=== PATIENT | female | born 1960 | race Caucasian/White ===

== ENCOUNTER → 2017-07-16 08:19 | Outpatient (CLI) | payer OTHER, MEDICAID, SELFPAY ==
--- NOTE | 2017-07-16 08:21 | DI.US.S_ITS ---
ULTRASOUND OF LEFT BREAST: 07/16/2017 CLINICAL: Patient returns today to evaluate a density in the left breast. Comparison is made to exams dated: 07/16/2017 mammogram, 06/25/2017 mammogram, and 06/02/2016 mammogram - [facility]. Color flow ultrasound of the left breast was performed on the areas of interest. Chavez scale images of the real-time examination were reviewed. There is a benign 0.6 cm x 0.4 cm x 0.5 cm simple cyst in the left breast at 6 o'clock in the retroareolar region. This correlates with mammography findings. IMPRESSION: BENIGN There is no sonographic evidence of malignancy. The 0.6 cm x 0.4 cm x 0.5 cm simple cyst in the left breast is benign. A 1 year screening mammogram is recommended. This exam was interpreted at Station ID: [id number]. Electronically Signed By: Radha schafer/:07/16/2017 09:29:01 letter sent: Normal Exam Ultrasound BI-RADS: 2 Benign
--- NOTE | 2017-07-16 08:21 | DI.MG.S_ITS ---
UNILATERAL LEFT DIGITAL DIAGNOSTIC MAMMOGRAM 3D/2D WITH ADDITIONAL VIEWS: 07/16/2017 CLINICAL: Additional evaluation requested from prior study. Comparison is made to exams dated: 06/25/2017 mammogram, 06/02/2016 mammogram - [facility], and 09/14/2013 mammogram - [facility]. The tissue of the left breast is heterogeneously dense. This may lower the sensitivity of mammography. There is a mass in the left breast at 6 o'clock in the retroareolar region. This is seen in additional views. No other significant masses or calcifications are seen in the breast. IMPRESSION: INCOMPLETE: NEEDS ADDITIONAL IMAGING EVALUATION The mass in the left breast is indeterminate. An ultrasound is recommended. This exam was interpreted at Station ID: [id number]. NOTE: For mammograms, a report in lay terms will be sent to the patient. Approximately 15% of breast malignancies will not be visualized mammographically. In the management of a palpable breast mass, a negative mammogram must not discourage biopsy of a clinically suspicious lesion. Electronically Signed By: Radha schafer/aggie:07/16/2017 08:53:17 letter sent: Additional Imaging Needed ACR BI-RADS Category 0: Incomplete [id number]
== END ==
PROVIDERS: PCP Physician Assistant; Visit Provider Physician Assistant
DX: R92.8 Other abnormal and inconclusive findings on diagnostic imaging of breast (principal)
CPT/HCPCS: 76642; 77065; G0279

== ENCOUNTER → 2017-09-27 08:02 | Outpatient (CLI) | payer OTHER, MEDICAID, SELFPAY ==
[2017-09-27 08:43] LABS: Alanine Aminotransferase 26 IU/L (9-52); Albumin 4.4 g/dL (3.5-5.0); Albumin Globulin Ratio 1.4 (1.0-2.8); Alkaline Phosphatase 67 U/L (38-126); Aspartate Aminotransferase 24 IU/L (14-36); Bilirubin Total 0.7 mg/dL (0.2-1.3); Blood Urea Nitrogen 16 mg/dL (7-17); C-Reactive Protein Quant 0.6 mg/dL (<1.0); Calcium 9.7 mg/dL (8.4-10.2); Carbon Dioxide 31 mmol/L (22-32); Chloride 103 mmol/L (98-107); Cholesterol 161 mg/dL (140-199); Estimated Glomerular Filt Rate > 60.0 mL/min (>60); Globulin 3.1 g/dL (1.7-4.1); Glucose 85 mg/dL (70-100); HDL Cholesterol 37 mg/dL (40-60); HEMOLYSIS < 15 (0-50); LDL Cholesterol Calculated 111 mg/dL (<100); Potassium 4.5 mmol/L (3.4-5.1); Sodium 143 mmol/L (137-145); Total Protein 7.5 g/dL (6.3-8.2); Triglycerides 63 mg/dL (35-150)
[2017-09-27 09:58] LABS: Free T3, Triiodothyronine Free 6.12 pg/mL (2.77-5.27); Free T4, Direct Thyroxine 1.28 ng/dL (0.78-2.19)
[2017-09-27 10:11] LABS: Thyroid Stimulating Hormone 0.67 uIU/mL (0.47-4.68)
== END ==
PROVIDERS: Visit Provider Physician Assistant
DX: I31.9 Disease of pericardium, unspecified (principal); Z01.89 Encounter for other specified special examinations; E03.9 Hypothyroidism, unspecified
CPT/HCPCS: 36415; 80053; 80061; 84439; 84443; 84481; 86140

== ENCOUNTER 2017-12-16 13:21 | Emergency (ER) | payer OTHER, MEDICAID, SELFPAY ==
--- NOTE | 2017-12-16 13:38 | ED.CHESTPAIN ---
HPI - Chest Pain General Chief Complaint: Chest Pain Stated Complaint: pericarditis, congestion, heart pain Time Seen by Provider: 12/16/17 13:38 Source: patient Mode of arrival: ambulatory Limitations: no limitations History of Present Illness HPI narrative: Patient is a 57-year-old female here for evaluation of multiple complaints. She has been seen in the walk-in clinic in the past and is currently on antibiotics and decongestants for an upper respiratory infection. She does also states she has a right sided ear infection. She states that she has been having some shortness of breath and also productive cough. She has been taking her medications. She also describes quite a bit of sinus congestion. She states she is having some chest discomfort. She was diagnosed with pericarditis back in 2016. Related Data Home Medications Medication Instructions Recorded Confirmed cholecalciferol (vitamin D3) 2,000 2,000 unit PO DAILY 11/23/17 12/16/17 unit capsule turmeric 1 cap PO .QDAY 11/23/17 12/16/17 cetirizine [Zyrtec] 1 tab PO DAILY 12/16/17 12/16/17 estradiol [Vivelle-Dot] 1 patch TOPICAL WEEKLY 12/16/17 12/16/17 guaifenesin [Mucinex] 1 tab PO BID 12/16/17 12/16/17 pseudoephedrine HCl [Sudafed] 1 tab PO Q4-6H PRN 12/16/17 12/16/17 Previous Rx's Medication Instructions Recorded alprazolam 0.5 mg tablet 0.5 mg PO BID PRN #30 tab 11/23/[address] See Label Instructions .ROUTE 11/23/17 .COMPLEX #1 levothyroxine 75 mcg tablet 75 mcg PO QAM #30 tab 11/23/17 liothyronine 5 mcg tablet 5 mcg PO QDAY #30 tab 11/23/17 cefdinir 300 mg capsule 300 mg PO BID 10 Days #20 cap 12/13/17 Allergies Allergy/AdvReac Type Severity Reaction Status Date / Time amoxicillin [AMOXICILLIN] Allergy Unknown Verified 12/13/17 15:13 erythromycin base Allergy Unknown GI UPSET Verified 12/13/17 15:13 [ERYTHROMYCIN BASE] SEVERE methocarbamol [METHOCARBAMOL] Allergy Unknown Verified 12/13/17 15:13 oxycodone [From PERCOCET] Allergy Unknown HIVES Verified 12/13/17 15:13 FIORCET Allergy Unknown Uncoded 11/23/17 11:05 Review of Systems Constitutional Reports chills, Reports fever(s) and Denies headache(s) ENT Ears, Nose, Mouth, and Throat: Denies dizziness, Denies headache(s), Denies disequilibrium, Reports sinus pressure and Reports sore throat Cardiovascular Reports chest pain, Denies rapid heart rate, Denies irregular heart rhythm, Denies lightheadedness, Denies palpitations and Reports dyspnea Respiratory Reports cough, Reports pain with cough and Reports dyspnea Gastrointestinal Gastrointestinal: Denies abdominal pain, Denies nausea and Denies vomiting Musculoskeletal Denies myalgias and Denies arthralgias Integumentary/Breasts Denies rash Neurologic Denies dizziness, Denies headache(s) and Denies disequilibrium Endocrine Denies palpitations Hematologic/Lymphatic Denies easy bleeding and Denies easy bruising [facility] Medical History Anxiety (Chronic Unknown) GERD (gastroesophageal reflux disease) (Chronic Unknown) Hemorrhoids (Chronic Unknown) Herpes (Chronic Unknown) Hypothyroidism (Chronic ~2013) Osteopenia (Chronic 10/2015) Osteoporosis (Chronic 10/2015) Recurrent sinusitis (Chronic Unknown) Vertigo (Chronic Unknown) 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) Abnormal Pap smear of cervix (Resolved ~1982) Lymphoma (Resolved 1995) Ovarian cyst (Resolved Unknown) Painful menstrual periods (Resolved Unknown) Skin cancer (Resolved ~1997) Surgical History Status post hysterectomy Social History Smoking Status: Current every day smoker Exam Initial Vital Signs Initial Vital Signs: Vital Signs Temperature 98.2 F 12/16/17 13:44 Pulse Rate 98 H 12/16/17 13:44 Respiratory Rate 18 12/16/17 13:44 Blood Pressure 109/71 12/16/17 13:44 Pulse Oximetry 96 12/16/17 13:44 Const General: cooperative, healthy appearing, comfortable, well developed, well groomed and No acute distress Orientation: alert, awake and oriented x3 HENMT Head: normal to inspection and normocephalic Ears: other ( tympanic membrane on the right is red and bulging. Tympanic membrane on the left is just bulging no red) Eyes Pupils: PERRL Resp Effort & Inspection: normal respiratory effort, no retractions and not tachypneic Auscultation: clear to auscultation bilaterally Cardio Rate: regular rate Rhythm: regular rhythm Heart Sounds: no rubs Pulses: radial pulses present GI Inspection: non-distended Palpation: soft, No firm and No tender Skin Lesions: no lesions Rashes: no rashes Neuro General: alert, awake and oriented x3 Extrem General: normal to inspection and capillary refill normal Psych Appearance: grossly normal and well kempt Course Orders Ordered: ED Orders 12/16/17 13:34 EKG-12 Lead Stat 12/16/17 13:39 XR chest 2V Stat 12/16/17 14:30 B Type Natriuretic Peptide Stat C-Reactive Protein Quant Stat Complete Blood Count AUTO DIFF Stat Comprehensive Metabolic Panel Stat Erythrocyte Sedimentation Rate Stat Lipase Stat Thyroid Stimulating Hormone Stat Troponin I Stat Vital Signs - 8 hr 12/16/17 13:44 12/16/17 14:00 12/16/17 14:40 Temperature 98.2 F Pulse Rate 98 H 91 H 91 H Respiratory Rate 18 16 16 Blood Pressure 109/71 Blood Pressure [Left Arm] 105/73 109/57 L Pulse Oximetry 96 97 96 12/16/17 16:31 Temperature Pulse Rate 88 Respiratory Rate 20 Blood Pressure Blood Pressure [Left Arm] 98/58 L Pulse Oximetry 97 MDM - Chest Pain Lab Data Attestation: I reviewed the patient's lab results. Result diagrams: 12/16/17 14:30 12/16/17 14:30 Lab Results 12/16/17 12/16/17 12/16/17 Range/Units 14:30 14:30 14:30 WBC 7.1 (4.5-11.0) X10^3/uL RBC 4.65 (4.0-5.2) X10^6/uL Hgb 14.3 (12.0-16.0) g/dL Hct 43.6 (36-46) % MCV 93.8 (80-100) fL MCH 30.8 (26-34) PG MCHC 32.8 (30-36) % RDW 13.6 (11.6-14.8) % Plt Count 182 (150-400) X10^3/uL Neut % (Auto) 70.3 (50-75) % Lymph % (Auto) 19.6 L (25-40) % Gilchrist % (Auto) 8.4 (3-14) % Eos % (Auto) 1.1 L (2-4) % Baso % (Auto) 0.6 (0-2) % Neut # (Auto) 5000 (2621-4342) /uL ESR 18 (0-20) MM/HR Sodium 146 H (137-145) mmol/L Potassium 4.3 (3.4-5.1) mmol/L Chloride 105 (98-107) mmol/L Carbon Dioxide 28 (22-32) mmol/L BUN 19 H (7-17) mg/dL Creatinine 0.60 (0.52-1.04) mg/dL Estimated GFR > 60.0 (>60) mL/min BUN/Creatinine Ratio 31.7 H (6-22) Glucose 82 (70-100) mg/dL Calcium 9.2 (8.4-10.2) mg/dL Total Bilirubin 0.4 (0.2-1.3) mg/dL AST 20 (14-36) IU/L ALT 27 (9-52) IU/L Alkaline Phosphatase 77 (38-126) U/L Troponin I < 0.012 (0.01-0.034) ng/mL C-Reactive Protein 5.9 H (<1.0) mg/dL B-Natriuretic Peptide 43.3 (<100) Total Protein 7.2 (6.3-8.2) g/dL Albumin 4.2 (3.5-5.0) g/dL Globulin 3.0 (1.7-4.1) g/dL Albumin/Globulin Ratio 1.4 (1.0-2.8) Lipase 55 (23-300) U/L TSH 0.30 L (0.47-4.68) uIU/mL Imaging Data Chest x-ray: Radiologist's impression: [address] [address] XRay Report Signed Patient: Carrie Lopez MMR#: [id number] : 1960Acct:[id number] Age/Sex: 57 / FDate of Service: 12/16/17 Loc: ED Accession Number: [id number] Procedure: XR chest 2V Ordering Provider: Kaden Nolasco D.O. PROCEDURE: XR CHEST 2V INDICATIONS: chest pain TECHNIQUE: 2 views of the chest were acquired. COMPARISON: [facility], CHEST 1 VIEW, 02/26/2017, 11:26. FINDINGS: Surgical changes and devices: None. Lungs and pleura: No pleural effusions or pneumothorax. Lungs are clear. Mediastinum: Mediastinal contours are normal. Heart size is normal. Bones and chest wall: No suspicious bony abnormalities. Soft tissues appear unremarkable. IMPRESSION: No acute process. Dictated by: Kunal Hua M.D. on 12/16/2017 at 14:31 Approved by: Kunal Hua M.D. on 12/16/2017 at 14:32 ECG Data Attestation: I personally reviewed and interpreted this ECG as follows: Prior ECG tracings: available for review Interpretation: EKG sinus rhythm ventricular rate of 96 normal axis incomplete right bundle branch block normal QTC No ST T wave changes comparison EKG dated 02/26/2017 Today's EKG on change from this previous EKG MDM Narrative Medical decision making narrative: patient with obvious upper respiratory symptoms. Obvious right sided otitis media. She is currently on antibiotics for all of this. No pneumonia on the chest x-ray. I have low concern for pericarditis given her physical exam in her labs. Discussed all this with the patient. We did discuss other treatments for her symptoms. We did discuss the importance of making sure that she is looking at the active ingredients in the [id number] cold preparations that she is taking to make sure that she is not overdosing on any medications. Also informed her that it is a poor that she continues her antibiotics. Will hold on further workup for now. She was given return precautions. She expressed understanding and agreement with plan. Discharge Plan Departure Patient Disposition: Home Clinical Impression: Acute upper respiratory infection Discharge Date/Time: 12/16/17 17:39 Interventions: ED Discharge Assessment Last Done: 12/16/17 17:38 Instructions: Sinusitis Activity Restrictions/Additional Instructions: continue with the antibiotics and other medication that your prescribed at her last medical appointment. Make sure that if your using [id number] cold preparations your looking at the ingredients to make sure you are not doubling up on medications that your taking. Call your primary care doctor for a follow-up. Return to the emergency department for any new or worsening symptoms Prescriptions: No Action cholecalciferol (vitamin D3) 2,000 unit capsule 2,000 unit PO DAILY RF: 0 turmeric 1 cap PO .QDAY RF: 0 alprazolam 0.5 mg tablet 0.5 mg PO BID PRN (Reason: anxiety) Qty: 30 RF: 1 levothyroxine [Synthroid] 75 mcg tablet 75 mcg PO QAM Qty: 30 RF: 5 liothyronine [Cytomel] 5 mcg tablet 5 mcg PO QDAY Qty: 30 RF: [address] See Label Instructions .ROUTE .COMPLEX Qty: 1 RF: 1 cefdinir 300 mg capsule 300 mg PO BID 10 Days Qty: 20 RF: 0 estradiol [Vivelle-Dot] 0.05 mg/24 hr patch semiweekly 1 patch Topical WEEKLY RF: 0 cetirizine [Zyrtec] 10 mg Tablet 1 tab PO DAILY RF: 0 pseudoephedrine HCl [Sudafed] 30 mg Tablet 1 tab PO Q4-6H PRN (Reason: Congestion) RF: 0 guaifenesin [Mucinex] 1,200 mg Tablet Extended Release 12hr 1 tab PO BID RF: 0
[2017-12-16 13:44] VITALS: BP 109/71; PULSE 98; RESP 18; TEMP 36.8; O2SAT 96
[2017-12-16 14:00] VITALS: BP 105/73; PULSE 91; RESP 16; O2SAT 97
--- NOTE | 2017-12-16 14:12 | PC.NURSE ---
reports, right ear pain, upper respiratory congestion, from chest up, has been taking zyrtec,mucinex, sudafed. sxs for 3days, denies fever. nasal drainage clear, yellow thick mucous.
--- NOTE | 2017-12-16 14:35 | PC.NURSE ---
pt states, she has been treating for otitis media, cefdinir 300mg bid , she has been taking them for 3 days.
[2017-12-16 14:40] VITALS: BP 109/57; PULSE 91; RESP 16; O2SAT 96
[2017-12-16 14:58] LABS: Add Manual Diff / Slide Review NO; Basophils Percent Auto 0.6 % (0-2); Eosinophils Percent Auto 1.1 % (2-4); Hematocrit 43.6 % (36-46); Hemoglobin 14.3 g/dL (12.0-16.0); Lymphocytes Percent Auto 19.6 % (25-40); Mean Corpuscular HGB Conc 32.8 % (30-36); Mean Corpuscular Hemoglobin 30.8 PG (26-34); Mean Corpuscular Volume 93.8 fL (80-100); Monocytes Percent Auto 8.4 % (3-14); Neutrophils Absolute Auto 5000 /uL (3000-5900); Neutrophils Percent Auto 70.3 % (50-75); Platelet Count 182 X10^3/uL (150-400); Red Blood Cell Count 4.65 X10^6/uL (4.0-5.2); Red Cell Distribution Width 13.6 % (11.6-14.8); White Blood Cell Count 7.1 X10^3/uL (4.5-11.0)
[2017-12-16 15:16] LABS: Alanine Aminotransferase 27 IU/L (9-52); Albumin 4.2 g/dL (3.5-5.0); Albumin Globulin Ratio 1.4 (1.0-2.8); Alkaline Phosphatase 77 U/L (38-126); Aspartate Aminotransferase 20 IU/L (14-36); BUN Creatinine Ratio 31.7 (6-22); Bilirubin Total 0.4 mg/dL (0.2-1.3); Blood Urea Nitrogen 19 mg/dL (7-17); C-Reactive Protein Quant 5.9 mg/dL (<1.0); Calcium 9.2 mg/dL (8.4-10.2); Carbon Dioxide 28 mmol/L (22-32); Chloride 105 mmol/L (98-107); Estimated Glomerular Filt Rate > 60.0 mL/min (>60); Glucose 82 mg/dL (70-100); HEMOLYSIS < 15 (0-50); Lipase 55 U/L (23-300); Potassium 4.3 mmol/L (3.4-5.1); Sodium 146 mmol/L (137-145); Total Protein 7.2 g/dL (6.3-8.2)
[2017-12-16 15:19] LABS: Erythrocyte Sedimentation Rate 18 MM/HR (0-20)
[2017-12-16 15:20] LABS: B Type Natriuretic Peptide 43.3 (<100)
[2017-12-16 15:26] LABS: Troponin I < 0.012 ng/mL (0.01-0.034)
[2017-12-16 16:31] VITALS: BP 98/58; PULSE 88; RESP 20; O2SAT 97
--- NOTE | 2017-12-16 17:41 | PC.NURSE ---
concern that she did not recieved iv fluids, reassured that her kidney function was normal. pt able to tolerated water po.
== END 2017-12-16 17:39 | disposition home or self-care (01) ==
PROVIDERS: Emergency Provider Emergency Medicine; PCP Student in an Organized Health Care Education/Training Program
DX: J06.9 Acute upper respiratory infection, unspecified (principal); R07.89 Other chest pain
CPT/HCPCS: 36591; 71046; 80053; 83690; 83880; 84443; 84484; 85025; 85651; 86140; 93005; 93010; 99283; 99285

== ENCOUNTER → 2017-12-30 14:32 | Outpatient (CLI) | payer MEDICARE, SELFPAY ==
--- NOTE | 2017-12-30 15:07 | DI.CT.S_ITS ---
PROCEDURE: CT CHEST W CON INDICATIONS: Night sweats, weight loss, Hx of lymphoma, cough TECHNIQUE: After the administration of intravenous contrast, 5 mm thick sections acquired from the pulmonary apices to the posterior costophrenic angles. 7 mm thick coronal and sagittal MIP reformats were acquired. For radiation dose reduction, the following was used: automated exposure control, adjustment of mA and/or kV according to patient size. COMPARISON: [facility], CR, XR CHEST 2V, 12/16/2017, 13:42. [facility], CT, PE STUDY (CTA CHEST), 07/25/2015, 18:27. FINDINGS: Image quality: Excellent. Lungs and pleura: There is a 4 mm nodule in the superior segment of the right lower lobe (series 3 image 39), unchanged foam 07/25/2015. A 2 mm is present in the right middle lobe (series 3 image 29), also unchanged. A couple of small linear subpleural irregular density in the right upper lobe, most likely septal scars. No acute air space opacities. There are a few emphysematous bullae. No pleural effusions or pneumothorax. Central and peripheral airways are patent and normal in caliber. Mediastinum: Heart size is normal. No pericardial effusion. Again noted is aberrant right subclavian artery. No mediastinal or hilar adenopathy by size criteria. Thoracic aorta and central pulmonary arteries are normal in size. Esophagus is normal in caliber. No hiatal hernia. Bones and chest wall: No suspicious bony lesions. No vertebral body compression fractures. No axillary or supraclavicular adenopathy by size criteria. Thyroid gland is normal. Abdomen: Visualized upper abdominal solid organs appear normal. Upper abdominal bowel loops are normal in caliber. IMPRESSION: 1. No lymphadenopathy. 2. A couple of small right lung nodules, unchanged since 07/25/2015, suggesting benign etiology. 3. Small indeterminate low-density nodules in liver are most likely cysts. 4. Mild emphysema. 5. Aberrant right subclavian artery. Dictated by: Asmita Lira M.D. on 12/30/2017 at 16:07 Transcribed by: BUTCH on 12/30/2017 at 16:22 Approved by: Asmita Lira M.D. on 12/30/2017 at 18:56
== END ==
PROVIDERS: PCP Student in an Organized Health Care Education/Training Program; Visit Provider Physician Assistant
DX: J43.9 Emphysema, unspecified (principal); K76.9 Liver disease, unspecified; Q27.8 Other specified congenital malformations of peripheral vascular system; R61 Generalized hyperhidrosis; R63.4 Abnormal weight loss; R05 Cough; R91.8 Other nonspecific abnormal finding of lung field; Z85.72 Personal history of non-Hodgkin lymphomas
CPT/HCPCS: 71260; Q9967

== ENCOUNTER → 2018-06-29 08:51 | Outpatient (CLI) | payer MEDICARE, SELFPAY ==
--- NOTE | 2018-06-29 08:53 | DI.MRI.S_ITS ---
PROCEDURE: MR CERVICAL SPINE WO CON INDICATIONS: Re-assess known radiculopathy and spinal stenosis TECHNIQUE: Noncontrast sagittal T1 spin echo and T2 fast spin echo, sagittal STIR, foraminal oblique sagittal T2 fast spin echo, and axial gradient echo or T2 fast spin echo through the cervical spine. COMPARISON: [facility], , C-SPINE WITHOUT CONTRAST, 11/27/2015, 7:47. FINDINGS: Image quality: Excellent. Alignment and Curvature: Straightening of the normal cervical lordosis Bone Marrow: Multilevel degenerative endplate sclerosis and spurring. Diffuse facet arthropathy. This is most pronounced on the right at C4-C5 (image 2 series 5) No acute fracture seen. Spinal Cord: Visualized spinal cord has normal size and signal. No cerebellar tonsillar herniation. Paraspinous Soft Tissues: No paravertebral masses. Prevertebral soft tissues are normal in thickness. C2-C3: Bilateral facet arthropathy. No central canal narrowing. No foraminal stenosis. C3-C4: Bilateral uncovertebral arthropathy and posterior intervening disc osteophyte complex, and bilateral facet arthropathy. No definite central canal narrowing. Mild right foraminal stenosis which appears unchanged. No left foraminal narrowing C4-C5: Bilateral uncovertebral arthropathy and posterior intervening disc osteophyte complex, and bilateral facet arthropathy. Mild central canal narrowing. This appears minimally progressed since prior study. Moderate to severe right foraminal stenosis with associated nerve root compression, which has developed since the prior study. No definite left-sided foraminal narrowing C5-C6: Bilateral uncovertebral arthropathy and posterior intervening disc osteophyte complex, and bilateral facet arthropathy. Mild central canal narrowing, grossly unchanged moderate left foraminal stenosis which appears unchanged. Mild right foraminal narrowing, unchanged. C6-C7: Bilateral uncovertebral arthropathy and posterior intervening disc osteophyte complex, and bilateral facet arthropathy. Mild central canal narrowing, which is grossly unchanged. Mild right foraminal narrowing which appears unchanged no definite left foraminal stenosis. C7-T1: Bilateral uncovertebral arthropathy and posterior intervening disc osteophyte complex, and bilateral facet disease. No central canal narrowing. No definite foraminal stenosis. IMPRESSION: Interval progression/development of severe right C4-C5 foraminal stenosis with associated nerve root compression. Interval worsening of right C4-C5 facet arthropathy. Remainder of the exam grossly unchanged since 11/27/15. Dictated by: Rasta Wills M.D. on 06/29/2018 at 10:40 Approved by: Rasta Wills M.D. on 06/29/2018 at 10:50
[2018-06-29 10:53] LABS: Vitamin D 25 Hydroxy (D3) 33.8 ng/mL (30.0-100.0)
[2018-06-29 10:54] LABS: Free T3, Triiodothyronine Free 3.61 pg/mL (2.77-5.27); Free T4, Direct Thyroxine 1.49 ng/dL (0.78-2.19)
[2018-06-29 11:07] LABS: Thyroid Stimulating Hormone 2.92 uIU/mL (0.47-4.68)
[2018-07-01 15:51] LABS: Thyroid Stimulating Immunoglob < 89 % baseline (< 140)
== END ==
PROVIDERS: PCP Student in an Organized Health Care Education/Training Program; Visit Provider Student in an Organized Health Care Education/Training Program
DX: M48.02 Spinal stenosis, cervical region (principal); M47.22 Other spondylosis with radiculopathy, cervical region; E03.9 Hypothyroidism, unspecified; E55.9 Vitamin D deficiency, unspecified
CPT/HCPCS: 36415; 72141; 82306; 84439; 84443; 84445; 84481

== ENCOUNTER 2018-07-04 08:53 | Emergency (ER) | payer MEDICARE, SELFPAY ==
[2018-07-04 09:18] VITALS: BP 115/64; PULSE 94; RESP 16; TEMP 35.8; O2SAT 100; BMI 22.4
--- NOTE | 2018-07-04 09:21 | ED.BACK ---
HPI - Back Pain/Injury General Chief Complaint: Back Pain/Injury Stated Complaint: SEVERE BACK PAIN Time Seen by Provider: 07/04/18 09:01 Source: patient Mode of arrival: ambulatory Limitations: no limitations History of Present Illness HPI Narrative: 57-year-old female former smoker with chronic neck and back pain presents with ongoing back pain for the past month or so. She has had significant evaluations of her cervical spine but never really any thorough evaluation of her lumbar spine. She denies any new injury. She denies any fever or chills. She does not use IV drugs. She denies any numbness, tingling or weakness. She denies any saddle anesthesia, difficulty starting urine or bowel streams and denies foot drop. Her pain is worse with motion and improves with rest MD Complaint: back pain Onset (ago): month(s) Duration: intermittent Similar Symptoms Previously: Yes Location: lumbar spine Severity: moderate Quality: aching Relieving factors: immobilization Exacerbating factors: movement Associated symptoms: denies other symptoms Related Data Home Medications Medication Instructions Recorded Confirmed cholecalciferol (vitamin D3) 2,000 2,000 unit PO DAILY 11/23/17 06/16/18 unit capsule Previous Rx's Medication Instructions Recorded disabled parking permit See Rx Instructions .ROUTE 11/23/17 .COMPLEX #1 estradiol 0.05 mg/24 hr semiweekly 1 patch TRANSDERMAL 2XW #1 each 04/21/18 transdermal patch alprazolam 0.5 mg tablet 0.5 mg PO BID PRN #30 tab 06/16/18 levothyroxine 75 mcg tablet 75 mcg PO QAM #30 tab 06/16/18 liothyronine 5 mcg tablet 5 mcg PO QDAY #30 tab 06/16/18 ketorolac 10 mg PO Q6H PRN #14 tab 07/04/18 Allergies Allergy/AdvReac Type Severity Reaction Status Date / Time amoxicillin [AMOXICILLIN] Allergy Unknown Verified 07/04/18 09:22 erythromycin base Allergy Unknown GI UPSET Verified 07/04/18 09:22 [ERYTHROMYCIN BASE] SEVERE methocarbamol [METHOCARBAMOL] Allergy Unknown Verified 07/04/18 09:22 oxycodone [From PERCOCET] Allergy Unknown HIVES Verified 07/04/18 09:22 adhesive tape AdvReac Intermediate Tears skin Verified 07/04/18 09:22 and reactive rashes FIORCET Allergy Unknown Uncoded 07/04/18 09:22 Review of Systems Constitutional Denies chills, Denies fever(s), Denies lethargy and Denies weakness Eyes Denies change in vision, Denies eye discharge, Denies irritation and Denies loss of vision ENT Ears, Nose, Mouth, and Throat: Denies change in voice, Denies neck pain and Denies sore throat Cardiovascular Denies chest pain, Denies irregular heart rhythm, Denies lightheadedness, Denies palpitations, Denies dyspnea, Denies dyspnea on exertion and Denies orthopnea Respiratory Denies cough, Denies dyspnea, Denies dyspnea on exertion and Denies wheezing Gastrointestinal Gastrointestinal: Denies abdominal pain, Denies change in bowel habits, Denies diarrhea, Denies nausea and Denies vomiting Genitourinary Denies hematuria, Denies flank pain, Denies urinary incontinence and Denies urinary urgency Musculoskeletal Reports back pain and Denies neck pain Integumentary/Breasts Denies pruritus, Denies erythema, Denies rash and Denies wounds Neurologic Denies confusion, Denies loss of vision and Denies weakness Psychiatric Denies anxiety, Denies confusion, Denies depression, Denies homicidal ideation and Denies suicidal ideation Endocrine Denies palpitations Hematologic/Lymphatic Denies easy bruising Allergic/Immunologic Denies wheezing [facility] Medical History Anxiety (Chronic Unknown) GERD (gastroesophageal reflux disease) (Chronic Unknown) Hemorrhoids (Chronic Unknown) Herpes (Chronic Unknown) Hypothyroidism (Chronic ~2013) Osteopenia (Chronic 10/2015) Osteoporosis (Chronic 10/2015) Recurrent sinusitis (Chronic Unknown) Vertigo (Chronic Unknown) 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 Extraoccular muscles are intact bilaterally. There is no subconjunctival hemorrhage or exudate. CHEST: Lungs are clear to auscultation bilaterally and free of wheezes, rales, or rhonchi. Heart rate is regular rhythm, there are no murmurs, clicks, rubs, or gallops. There is no chest wall tenderness. ABD: Abdomen is soft and nontender. There is no guarding or rebound. Bowel sounds are normal in all 4 quadrants. There is no mass or organomegaly. EXT: Full painless ROM of all extremities with no loss of sensation or strength. SKIN: Warm, pink, and dry. No erythema or rash BACK: beck tender but free of any obvious external abnormalities. Patient exam notes decreased range of motion and muscle spasm, but no CVA tenderness, or vertebral point tenderness. There are no symptoms of cauda equina such as saddle anesthesia, and decreased reflexes, decreased sensation or strength. Initial Vital Signs Initial Vital Signs: Vital Signs Temperature 96.4 F L 07/04/18 09:18 Pulse Rate 94 H 07/04/18 09:18 Respiratory Rate 16 07/04/18 09:18 Blood Pressure 115/64 07/04/18 09:18 Pulse Oximetry 100 07/04/18 09:18 Course Orders Ordered: ED Orders 07/04/18 09:32 XR lumbar spine 2-3V Stat Vital Signs - 8 hr 07/04/18 10:31 Pulse Rate 70 Respiratory Rate 14 Blood Pressure [Right Arm] 112/69 Pulse Oximetry 100 MDM - Back Pain/Injury Lab Data Urine Dip Bedside Urine Glucose Negative Bedside Urine Bilirubin - Negative Bedside Urine Ketone - Negative Urine Specific [place] 1.030 Bedside Urine Occult Blood - Negative Bedside Urine pH 6.0 Bedside Urine Protein - Negative Bedside Urine Urobilinogen - Negative Bedside Urine Nitrite - Negative Bedside Urine Leukocytes - Negative Esterase Imaging Data Lumbar Pain: Radiologist's impression: JohnCarrie Niko 57 F [address] [address] XRay Report Signed Patient: Carrie Lopez [facility]#: [id number] : 1960Acct:[id number] Age/Sex: 57 / FDate of Service: 07/04/18 Loc: ED Accession Number: [id number] Procedure: XR lumbar spine 2-3V Ordering Provider: Iván Riddle D.O. PROCEDURE: XR LUMBAR SPINE 2-3V INDICATIONS: back pain for 1 week TECHNIQUE: 3 views of the lumbar spine were acquired. COMPARISON: None. FINDINGS: Bones: No fracture or focal osseous destruction. Multilevel degenerative endplate sclerosis and spurring. Diffuse facet arthropathy. Straightening of the normal lordotic curvature. Mild narrowing of the L3-L4 and L4-L5 disc heights. Soft tissues: Overlying bowel gas pattern is normal. No suspicious soft tissue calcifications. IMPRESSION: Spondylosis and facet arthropathy as detailed above. If the patient's pain or other symptoms persist, consider further evaluation with MRI Dictated by: Rasta Wills M.D. on 07/04/2018 at 9:59 Approved by: Rasta Wills M.D. on 07/04/2018 at 10:02 MDM Narrative Medical decision making narrative: Multiple etiologies of back pain considered including; Epidural abscess, cauda equina, mass occupying lesion, and other considered Discharge Plan Departure Patient Disposition: Home Clinical Impression: Back pain Qualifiers: Back pain location: low back pain Chronicity: acute Back pain laterality: bilateral Sciatica presence: without sciatica Qualified Code(s): M54.5 - Low back pain Discharge Date/Time: 07/04/18 10:52 Interventions: ED Discharge Assessment Last Done: 07/04/18 10:52 Instructions: DI for Back Spasm Activity Restrictions/Additional Instructions: *You have been diagnosed with [ chronic back pain ] *What to do: *Take medications as directed *Follow up with your primary care provider in 2-3 days, call for an appointment. Let them know you were seen in the Emergency Department and that we ask that you be seen in follow up *Return to ER if you should have any new, worsening or concerning symptoms Prescriptions: New ketorolac 10 mg tablet 10 mg PO Q6H PRN (Reason: pain) Qty: 14 RF: 0 No Action cholecalciferol (vitamin D3) 2,000 unit capsule 2,000 unit PO DAILY RF: [address] See Rx Instructions .ROUTE .COMPLEX Qty: 1 RF: 1 estradiol [Vivelle-Dot] 0.05 mg/24 hr patch semiweekly 1 patch Transdermal 2XW Qty: 1 RF: 3 levothyroxine [Synthroid] 75 mcg tablet 75 mcg PO QAM Qty: 30 RF: 5 liothyronine [Cytomel] 5 mcg tablet 5 mcg PO QDAY Qty: 30 RF: 5 alprazolam 0.5 mg tablet 0.5 mg PO BID PRN (Reason: anxiety) Qty: 30 RF: 1 Referrals: Ankit Cast MD [Primary Care Provider] -
--- NOTE | 2018-07-04 09:32 | DI.RAD.S_ITS ---
PROCEDURE: XR LUMBAR SPINE 2-3V INDICATIONS: back pain for 1 week TECHNIQUE: 3 views of the lumbar spine were acquired. COMPARISON: None. FINDINGS: Bones: No fracture or focal osseous destruction. Multilevel degenerative endplate sclerosis and spurring. Diffuse facet arthropathy. Straightening of the normal lordotic curvature. Mild narrowing of the L3-L4 and L4-L5 disc heights. Soft tissues: Overlying bowel gas pattern is normal. No suspicious soft tissue calcifications. IMPRESSION: Spondylosis and facet arthropathy as detailed above. If the patient's pain or other symptoms persist, consider further evaluation with MRI Dictated by: Rasta Wills M.D. on 07/04/2018 at 9:59 Approved by: Rasta Wills M.D. on 07/04/2018 at 10:02
[2018-07-04 10:31] VITALS: BP 112/69; PULSE 70; RESP 14; O2SAT 100
--- NOTE | 2018-07-04 17:43 | ED_ITS ---
HPI - Back Pain/Injury General Chief Complaint: Back Pain/Injury Stated Complaint: SEVERE BACK PAIN Time Seen by Provider: 07/04/18 09:01 Source: patient Mode of arrival: ambulatory Limitations: no limitations History of Present Illness HPI Narrative: 57-year-old female former smoker with chronic neck and back pain presents with ongoing back pain for the past month or so. She has had significant evaluations of her cervical spine but never really any thorough evaluation of her lumbar spine. She denies any new injury. She denies any fever or chills. She does not use IV drugs. She denies any numbness, tingling or weakness. She denies any saddle anesthesia, difficulty starting urine or bowel streams and denies foot drop. Her pain is worse with motion and improves with rest MD Complaint: back pain Onset (ago): month(s) Duration: intermittent Similar Symptoms Previously: Yes Location: lumbar spine Severity: moderate Quality: aching Relieving factors: immobilization Exacerbating factors: movement Associated symptoms: denies other symptoms Related Data Home Medications Medication Instructions Recorded Confirmed cholecalciferol (vitamin D3) 2,000 2,000 unit PO DAILY 11/23/17 06/16/18 unit capsule Previous Rx's Medication Instructions Recorded disabled parking permit See Rx Instructions .ROUTE 11/23/17 .COMPLEX #1 estradiol 0.05 mg/24 hr semiweekly 1 patch TRANSDERMAL 2XW #1 each 04/21/18 transdermal patch alprazolam 0.5 mg tablet 0.5 mg PO BID PRN #30 tab 06/16/18 levothyroxine 75 mcg tablet 75 mcg PO QAM #30 tab 06/16/18 liothyronine 5 mcg tablet 5 mcg PO QDAY #30 tab 06/16/18 ketorolac 10 mg PO Q6H PRN #14 tab 07/04/18 Allergies Allergy/AdvReac Type Severity Reaction Status Date / Time amoxicillin [AMOXICILLIN] Allergy Unknown Verified 07/04/18 09:22 erythromycin base Allergy Unknown GI UPSET Verified 07/04/18 09:22 [ERYTHROMYCIN BASE] SEVERE methocarbamol [METHOCARBAMOL] Allergy Unknown Verified 07/04/18 09:22 oxycodone [From PERCOCET] Allergy Unknown HIVES Verified 07/04/18 09:22 adhesive tape AdvReac Intermediate Tears skin Verified 07/04/18 09:22 and reactive rashes FIORCET Allergy Unknown Uncoded 07/04/18 09:22 Review of Systems Constitutional Denies chills, Denies fever(s), Denies lethargy and Denies weakness Eyes Denies change in vision, Denies eye discharge, Denies irritation and Denies loss of vision ENT Ears, Nose, Mouth, and Throat: Denies change in voice, Denies neck pain and Denies sore throat Cardiovascular Denies chest pain, Denies irregular heart rhythm, Denies lightheadedness, Denies palpitations, Denies dyspnea, Denies dyspnea on exertion and Denies orthopnea Respiratory Denies cough, Denies dyspnea, Denies dyspnea on exertion and Denies wheezing Gastrointestinal Gastrointestinal: Denies abdominal pain, Denies change in bowel habits, Denies diarrhea, Denies nausea and Denies vomiting Genitourinary Denies hematuria, Denies flank pain, Denies urinary incontinence and Denies urinary urgency Musculoskeletal Reports back pain and Denies neck pain Integumentary/Breasts Denies pruritus, Denies erythema, Denies rash and Denies wounds Neurologic Denies confusion, Denies loss of vision and Denies weakness Psychiatric Denies anxiety, Denies confusion, Denies depression, Denies homicidal ideation and Denies suicidal ideation Endocrine Denies palpitations Hematologic/Lymphatic Denies easy bruising Allergic/Immunologic Denies wheezing [facility] Medical History Anxiety (Chronic Unknown) GERD (gastroesophageal reflux disease) (Chronic Unknown) Hemorrhoids (Chronic Unknown) Herpes (Chronic Unknown) Hypothyroidism (Chronic ~2013) Osteopenia (Chronic 10/2015) Osteoporosis (Chronic 10/2015) Recurrent sinusitis (Chronic Unknown) Vertigo (Chronic Unknown) 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 Extraoccular muscles are intact bilaterally. There is no subconjunctival hemorrhage or exudate. CHEST: Lungs are clear to auscultation bilaterally and free of wheezes, rales, or rhonchi. Heart rate is regular rhythm, there are no murmurs, clicks, rubs, or gallops. There is no chest wall tenderness. ABD: Abdomen is soft and nontender. There is no guarding or rebound. Bowel sounds are normal in all 4 quadrants. There is no mass or organomegaly. EXT: Full painless ROM of all extremities with no loss of sensation or strength. SKIN: Warm, pink, and dry. No erythema or rash BACK: splitting machine tender but free of any obvious external abnormalities. Patient exam notes decreased range of motion and muscle spasm, but no CVA tenderness, or vertebral point tenderness. There are no symptoms of cauda equina such as sa ddle anesthesia, and decreased reflexes, decreased sensation or strength. Initial Vital Signs Initial Vital Signs: Vital Signs Temperature 96.4 F L 07/04/18 09:18 Pulse Rate 94 H 07/04/18 09:18 Respiratory Rate 16 07/04/18 09:18 Blood Pressure 115/64 07/04/18 09:18 Pulse Oximetry 100 07/04/18 09:18 Course Orders Ordered: ED Orders 07/04/18 09:32 XR lumbar spine 2-3V Stat Vital Signs - 8 hr 07/04/18 10:31 Pulse Rate 70 Respiratory Rate 14 Blood Pressure [Right Arm] 112/69 Pulse Oximetry 100 MDM - Back Pain/Injury Lab Data Urine Dip Bedside Urine Glucose Negative Bedside Urine Bilirubin - Negative Bedside Urine Ketone - Negative Urine Specific [place] 1.030 Bedside Urine Occult Blood - Negative Bedside Urine pH 6.0 Bedside Urine Protein - Negative Bedside Urine Urobilinogen - Negative Bedside Urine Nitrite - Negative Bedside Urine Leukocytes - Negative Esterase Imaging Data Lumbar Pain: Radiologist's impression: JohnCarrie Niko 57 F [address] [address] XRay Report Signed Patient: Carrie Lopez [facility]#: [id number] : 1960Acct:[id number] Age/Sex: 57 / FDate of Service: 07/04/18 Loc: ED Accession Number: [id number] Procedure: XR lumbar spine 2-3V Ordering Provider: Iván Riddle D.O. PROCEDURE: XR LUMBAR SPINE 2-3V INDICATIONS: back pain for 1 week TECHNIQUE: 3 views of the lumbar spine were acquired. COMPARISON: None. FINDINGS: Bones: No fracture or focal osseous destruction. Multilevel degenerative endplate sclerosis and spurring. Diffuse facet arthropathy. Straightening of the normal lordotic curvature. Mild narrowing of the L3-L4 and L4-L5 disc heights. Soft tissues: Overlying bowel gas pattern is normal. No suspicious soft tissue calcifications. IMPRESSION: Spondylosis and facet arthropathy as detailed above. If the patient's pain or other symptoms persist, consider further evaluation with MRI Dictated by: Rasta Wills M.D. on 07/04/2018 at 9:59 Approved by: Rasta Wills M.D. on 07/04/2018 at 10:02 MDM Narrative Medical decision making narrative: Multiple etiologies of back pain considered including; Epidural abscess, cauda equina, mass occupying lesion, and other considered Discharge Plan Departure Patient Disposition: Home Clinical Impression: Back pain Qualifiers: Back pain location: low back pain Chronicity: acute Back pain laterality: bilateral Sciatica presence: without sciatica Qualified Code(s): M54.5 - Low back pain Discharge Date/Time: 07/04/18 10:52 Interventions: ED Discharge Assessment Last Done: 07/04/18 10:52 Instructions: DI for Back Spasm Activity Restrictions/Additional Instructions: *You have been diagnosed with [ chronic back pain ] *What to do: *Take medications as directed *Follow up with your primary care provider in 2-3 days, call for an appointment. Let them know you were seen in the Emergency Department and that we ask that you be seen in follow up *Return to ER if you should have any new, worsening or concerning symptoms Prescriptions: New ketorolac 10 mg tablet 10 mg PO Q6H PRN (Reason: pain) Qty: 14 RF: 0 No Action cholecalciferol (vitamin D3) 2,000 unit capsule 2,000 unit PO DAILY RF: [address] See Rx Instructions .ROUTE .COMPLEX Qty: 1 RF: 1 estradiol [Vivelle-Dot] 0.05 mg/24 hr patch semiweekly 1 patch Transdermal 2XW Qty: 1 RF: 3 levothyroxine [Synthroid] 75 mcg tablet 75 mcg PO QAM Qty: 30 RF: 5 liothyronine [Cytomel] 5 mcg tablet 5 mcg PO QDAY Qty: 30 RF: 5 alprazolam 0.5 mg tablet 0.5 mg PO BID PRN (Reason: anxiety) Qty: 30 RF: 1 Referrals: Ankit Cast MD [Primary Care Provider] -
== END 2018-07-04 10:52 | disposition home or self-care (01) ==
PROVIDERS: Emergency Provider Emergency Medicine; PCP Student in an Organized Health Care Education/Training Program
DX: M54.5 Low back pain (principal)
CPT/HCPCS: 72100; 81003; 99283

== ENCOUNTER → 2018-07-07 08:56 | Outpatient (CLI) | payer MEDICARE, SELFPAY ==
--- NOTE | 2018-07-07 08:58 | DI.MG.S_ITS ---
BILATERAL DIGITAL SCREENING MAMMOGRAM 3D/2D WITH CAD: 07/07/2018 CLINICAL: Routine screening. Family history of breast cancer. Comparison is made to exams dated: 07/16/2017 mammogram, 06/25/2017 mammogram, and 06/02/2016 mammogram - [facility]. The tissue of both breasts is heterogeneously dense. This may lower the sensitivity of mammography. Current study was also evaluated with a Computer Aided Detection (CAD) system. No significant masses, calcifications, or other findings are seen in either breast. There has been no significant interval change. IMPRESSION: NEGATIVE There is no mammographic evidence of malignancy. A 1 year screening mammogram is recommended. This exam was interpreted at Station ID: [id number]. NOTE: For mammograms, a report in lay terms will be sent to the patient. Approximately 15% of breast malignancies will not be visualized mammographically. In the management of a palpable breast mass, a negative mammogram must not discourage biopsy of a clinically suspicious lesion. Electronically Signed By: Catrachito pagan/aggie:07/07/2018 12:15:15 letter sent: Normal Exam ACR BI-RADS Category 1: Negative [id number]
== END ==
PROVIDERS: PCP Student in an Organized Health Care Education/Training Program; Visit Provider Student in an Organized Health Care Education/Training Program
DX: Z12.31 Encounter for screening mammogram for malignant neoplasm of breast (principal); Z80.3 Family history of malignant neoplasm of breast; M81.0 Age-related osteoporosis without current pathological fracture; Z78.0 Asymptomatic menopausal state; C81.90 Hodgkin lymphoma, unspecified, unspecified site; Z90.722 Acquired absence of ovaries, bilateral; Z82.62 Family history of osteoporosis; F17.200 Nicotine dependence, unspecified, uncomplicated
CPT/HCPCS: 77063; 77067; 77080

== ENCOUNTER 2018-09-11 07:18 | Emergency (ER) | payer MEDICARE, SELFPAY ==
[2018-09-11 07:25] VITALS: BP 123/76; PULSE 80; RESP 15; TEMP 36.2; O2SAT 96; BMI 22.4
--- NOTE | 2018-09-11 15:11 | ED_ITS ---
HPI - Allergic Reaction General Chief complaint: Skin/Abscess/Foreign Body Stated complaint: allergic reaction to bug bite on rt hand Time Seen by Provider: 09/11/18 07:23 Source: patient Mode of arrival: ambulatory Limitations: no limitations History of Present Illness HPI narrative: 58-year-old female nonsmoker presents with her therapy dog and a chief complaint of redness and swelling of her right hand after mosquito bite. She states it has been itching and painful, she saw the mosquito bite her. She denies any trouble with breathing nor swelling of tongue, lips or throat. She used some Benadryl lotion without much in the way of relief. She is otherwise well and free of complain MD complaint: allergic reaction Onset (ago): day(s) Exposure: insect bite Symptoms: itching Severity: mild Treatment prior to arrival: topical medicine Previous Allergic Reaction History: none Related Data Home Medications Medication Instructions Recorded Confirmed cholecalciferol (vitamin D3) 2,000 2,000 unit PO DAILY 11/23/17 08/12/18 unit capsule Previous Rx's Medication Instructions Recorded disabled parking permit See Rx Instructions .ROUTE 11/23/17 .COMPLEX #1 levothyroxine 75 mcg tablet 75 mcg PO QAM #30 tab 06/16/18 Vivelle-Dot 0.05 mg/24 hr 1 patch TRANSDERMAL 2XW #8 each NS 07/26/18 transdermal patch zoledronic acid 4 mg/5 mL 4 mg IV ONCE #5 ml 08/12/18 intravenous solution Biest 1.25 mg TOPICAL DAILY #30 mg 08/17/18 alprazolam 0.5 mg tablet 0.5 mg PO BID PRN #30 tab 08/31/18 Allergies Allergy/AdvReac Type Severity Reaction Status Date / Time amoxicillin [AMOXICILLIN] Allergy Unknown Verified 09/11/18 07:25 erythromycin base Allergy Unknown GI UPSET Verified 09/11/18 07:25 [ERYTHROMYCIN BASE] SEVERE methocarbamol [METHOCARBAMOL] Allergy Unknown Verified 09/11/18 07:25 oxycodone [From PERCOCET] Allergy Unknown HIVES Verified 09/11/18 07:25 adhesive tape AdvReac Intermediate Tears skin Verified 09/11/18 07:25 and reactive rashes FIORCET Allergy Unknown Uncoded 09/11/18 07:25 Review of Systems Constitutional Denies chills, Denies fever(s), Denies lethargy and Denies weakness Eyes Denies change in vision, Denies eye discharge, Denies irritation and Denies loss of vision ENT Ears, Nose, Mouth, and Throat: Denies change in voice, Denies neck pain and Denies sore throat Cardiovascular Denies chest pain, Denies irregular heart rhythm, Denies lightheadedness, Denies palpitations, Denies dyspnea, Denies dyspnea on exertion and Denies orthopnea Respiratory Denies cough, Denies dyspnea, Denies dyspnea on exertion and Denies wheezing Gastrointestinal Gastrointestinal: Denies abdominal pain, Denies change in bowel habits, Denies diarrhea, Denies nausea and Denies vomiting Genitourinary Denies hematuria, Denies flank pain, Denies urinary incontinence and Denies urinary urgency Musculoskeletal Denies neck pain Integumentary/Breasts Reports pruritus, Reports erythema, Reports rash, Reports skin swelling and Denies wounds Neurologic Denies confusion, Denies loss of vision and Denies weakness Psychiatric Denies anxiety, Denies confusion, Denies depression, Denies homicidal ideation and Denies suicidal ideation Endocrine Denies palpitations Hematologic/Lymphatic Denies easy bruising Allergic/Immunologic Denies wheezing PFSH Medical History Anxiety (Chronic Unknown) GERD (gastroesophageal reflux disease) (Chronic Unknown) Hemorrhoids (Chronic Unknown) Herpes (Chronic Unknown) Hypothyroidism (Chronic ~2013) Osteopenia (Chronic 10/2015) Osteoporosis (Chronic 10/2015) Recurrent sinusitis (Chronic Unknown) Vertigo (Chronic Unknown) 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 Extrao ccular muscles are intact bilaterally. There is no subconjunctival hemorrhage or exudate. ENT: No tongue, lip, throat swelling. Able to handle secretions without difficulty CHEST: Lungs are clear to auscultation bilaterally and free of wheezes, rales, or rhonchi. Heart rate is regular rhythm, there are no murmurs, clicks, rubs, or gallops. There is no chest wall tenderness. ABD: Abdomen is soft and nontender. There is no guarding or rebound. Bowel sounds are normal in all 4 quadrants. There is no mass or organomegaly. EXT: Full painless ROM of all extremities with no loss of sensation or strength. SKIN: Insect bite noted on dorsum of right hand with minimal surrounding erythema, limited to dorsum of right hand. No pain, induration or fluctuance to suggest cellulitis or abscess Initial Vital Signs Initial Vital Signs: Vital Signs Temperature 97.2 F L 09/11/18 07:25 Pulse Rate 80 09/11/18 07:25 Respiratory Rate 15 09/11/18 07:25 Blood Pressure 123/76 09/11/18 07:25 Pulse Oximetry 96 09/11/18 07:25 Course Vital Signs - 8 hr 09/11/18 07:25 Temperature 97.2 F L Pulse Rate 80 Respiratory Rate 15 Blood Pressure 123/76 Pulse Oximetry 96 Discharge Plan Departure Patient Disposition: Home Clinical Impression: Allergic reaction Qualifiers: Encounter type: initial encounter Qualified Code(s): T78.40XA - Allergy, unspecified, initial encounter Discharge Date/Time: 09/11/18 07:45 Interventions: ED Discharge Assessment Last Done: 09/11/18 07:45 Instructions: DI for General Allergic Reactions Activity Restrictions/Additional Instructions: *You have been diagnosed with [localized allergic reaction to mosquito bite] *What to do: *Take medications as directed: Please increase your Zyrtec to twice daily and use of a hydrocortisone cream as directed on packaging *Follow up with your primary care provider in 2-3 days, call for an appointment. Let them know you were seen in the Emergency Department and that we ask that you be seen in follow up *Return to ER if you should have any new, worsening or concerning symptoms, such as [increasing swelling or more widespread symptoms such as trouble breathing, swallowing or speaking] Prescriptions: No Action cholecalciferol (vitamin D3) 2,000 unit capsule 2,000 unit PO DAILY RF: [address] See Rx Instructions .ROUTE .COMPLEX Qty: 1 RF: 1 estradiol [Vivelle-Dot] 0.05 mg/24 hr patch semiweekly 1 patch Transdermal 2XW Qty: 8 RF: 11 alprazolam 0.5 mg tablet 0.5 mg PO BID PRN (Reason: anxiety) Qty: 30 RF: 2 levothyroxine [Synthroid] 75 mcg tablet 75 mcg PO QAM Qty: 30 RF: 5 zoledronic acid 4 mg/5 mL solution 4 mg IV ONCE Qty: 5 RF: 0 Biest gel 1.25 mg topical DAILY Qty: 30 RF: 5 Referrals: Ankit Cast MD [Primary Care Provider] -
== END 2018-09-11 07:45 | disposition home or self-care (01) ==
PROVIDERS: Emergency Provider Emergency Medicine; PCP Student in an Organized Health Care Education/Training Program
DX: T78.40XA Allergy, unspecified, initial encounter (principal); W57.XXXA Bitten or stung by nonvenomous insect and other nonvenomous arthropods, initial encounter
CPT/HCPCS: 99282

== ENCOUNTER → 2019-02-22 16:12 | Outpatient (CLI) | payer MEDICARE, MEDICAID, SELFPAY ==
[2019-02-22 16:36] LABS: Hematocrit 43.4 % (36-46); Hemoglobin 14.7 g/dL (12.0-16.0); Mean Corpuscular HGB Conc 33.9 % (30-36); Mean Corpuscular Hemoglobin 30.6 PG (26-34); Mean Corpuscular Volume 90.2 fL (80-100); Platelet Count 198 X10^3/uL (150-400); Red Blood Cell Count 4.81 X10^6/uL (4.0-5.2); Red Cell Distribution Width 13.1 % (11.6-14.8); White Blood Cell Count 7.1 X10^3/uL (4.5-11.0)
[2019-02-22 16:55] LABS: Alanine Aminotransferase 25 IU/L (<35); Albumin 4.2 g/dL (3.5-5.0); Albumin Globulin Ratio 1.4 (1.0-2.8); Alkaline Phosphatase 106 U/L (38-126); Aspartate Aminotransferase 32 IU/L (14-36); BUN Creatinine Ratio 21.3 (6-22); Bilirubin Total 0.3 mg/dL (0.2-1.3); Blood Urea Nitrogen 17 mg/dL (7-17); Calcium 9.7 mg/dL (8.4-10.2); Carbon Dioxide 28 mmol/L (22-32); Chloride 104 mmol/L (98-107); Estimated Glomerular Filt Rate > 60.0 mL/min (>60); Glucose 103 mg/dL (70-100); HEMOLYSIS < 15 (0-50); Lipase 104 U/L (23-300); Potassium 3.8 mmol/L (3.4-5.1); Sodium 140 mmol/L (137-145); Total Protein 7.2 g/dL (6.3-8.2)
[2019-02-22 17:42] LABS: Vitamin B12 554 pg/mL (239-931)
[2019-02-22 17:52] LABS: TSH w/ Reflex to FT4 3.98 uIU/mL (0.47-4.68)
== END ==
PROVIDERS: PCP Student in an Organized Health Care Education/Training Program; Visit Provider Student in an Organized Health Care Education/Training Program
DX: R53.83 Other fatigue (principal); I10 Essential (primary) hypertension; E03.9 Hypothyroidism, unspecified; R14.0 Abdominal distension (gaseous)
CPT/HCPCS: 80053; 82607; 83690; 84443; 85027

== ENCOUNTER → 2019-06-29 07:50 | Outpatient (CLI) | payer MEDICARE, MEDICAID, SELFPAY ==
--- NOTE | 2019-06-29 07:52 | DI.ECHO.S_ITS ---
[facility]---------+ [facility] +---------+ : : [address] [place] [place] : : : : [id number] : : : : Phone: [phone] Echocardiogram Report + + :Name: JUICE DAI Study Date: 06/29/2019 Height: 65 in : :[facility] Weight: 165 lb : : Gender: Female BSA: 1.8 m2 : :: 1960 Age: 58 yrs BP: 115/68 mmHg: :Reason For Study: ANGINA, H/O PERICARDITIS : : Performed By: Kimberly King : :Referring: SUMAN ROCHA : + + Interpretation Summary The left ventricle is normal in size. Left ventricular systolic function is normal without focal wall motion abnormalities. The ejection fraction is estimated to be 55-60%. Diastolic parameters suggest a relaxation abnormality of the left ventricle, consistent with probable normal filling pressures. The right ventricle is normal in size and function. The right ventricular systolic pressure is estimated to be at least 20 mmHg based on an estimated right atrial pressure of 3 mm Hg. The left atrial size is normal. Right atrial size is normal. There is no significant valvular heart disease. The aortic root is normal size. There is no pericardial effusion. No significant changes since prior study. Procedure: A two-dimensional transthoracic echocardiogram with color flow and Doppler was performed. There is no prior echocardiogram noted for this patient. The study quality was technically adequate. The patient was in normal sinus rhythm during the exam. The heart rate ranged between 75-85 bpm during the study. Left Ventricle: The left ventricle is normal in size. There is normal left ventricular wall thickness. Left ventricular systolic function is normal without focal wall motion abnormalities. The ejection fraction is estimated to be 55-60%. Diastolic parameters suggest a relaxation abnormality of the left ventricle, consistent with probable normal filling pressures. Right Ventricle: The right ventricle is normal in size and function. Atria: The left atrial size is normal. Right atrial size is normal. The interatrial septum is intact with no evidence for an atrial septal defect. Mitral Valve: The mitral valve is normal in structure and function. Aortic Valve: The aortic valve is normal in structure and function. The aortic valve is trileaflet. The aortic valve opens well. There is no aortic valve stenosis. No aortic regurgitation is present. Tricuspid Valve: The tricuspid valve is normal in structure and function. There is mild tricuspid regurgitation. The right ventricular systolic pressure is estimated to be at least 20 mmHg based on an estimated right atrial pressure of 3 mm Hg. Pulmonic Valve: The pulmonic valve is normal in structure and function. There is trace pulmonic regurgitation. There is no significant valvular heart disease. Great Vessels: The aortic root is normal size. The dimensions of the ascending aorta are normal. The pulmonary artery is normal size. The IVC is of normal diameter and collapses greater than 50% with a sniff. This suggests a low right atrial pressure of 3 mm Hg. Pericardium/ Pleura There is no pericardial effusion. There is no pleural effusion. MMode/2D Measurements & Calculations LVIDd: 3.5 cm LVOT diam: 2.1 cm LVIDs: 2.5 cm Ao root diam: 3.0 cm FS: 27.9 % Ao Arch Diam (Prox Trans): 2.2 cm EPSS: 0.98 cm IVSd: 0.86 cm LVPWd: 0.83 cm LV dempsey. diameter/BSA (cm/m^2): 1.9 LV sys. diameter/BSA (cm/m^2): 1.4 LA A2 area: 13.7 cm2 RA long axis: 4.6 cm LA A4 area: 14.0 cm2 RA area: 14.4 cm2 LA length (vol): 4.9 cm RA vol: 38.7 ml LA vol: 33.4 ml RA : 21.3 ml/m2 LA vol index: 18.3 ml/m2 IVC diam: 1.1 cm RVD1 (basal): 3.0 cm TAPSE: 2.0 cm Doppler Measurements & Calculations Ao V2 max: 111.2 cm/sec LVOT Max Garrison: 81.9 cm/sec Ao V2 mean: 80.1 cm/sec LV V1 max P.7 mmHg Ao max P.9 mmHg LV V1 VTI: 17.5 cm Ao mean P.8 mmHg STEPH(I,D): 2.7 cm2 Ao V2 VTI: 23.5 cm STEPH(V,D): 2.6 cm2 sev ratio: 0.75 STEPH indexed to BSA (cm^2/m^2): 1.5 MV E max garrison: 59.9 cm/sec TR max garrison: 203.9 cm/sec MV A max garrison: 72.2 cm/sec TR max P.7 mmHg MV E/A: 0.83 PA V2 max: 64.1 cm/sec Med Peak E' Garrison: 7.2 cm/sec PA V2 mean: 44.0 cm/sec E/E' med: 8.3 PA mean P.85 mmHg Lat Peak E' Garrison: 9.9 cm/sec E/E' lat: 6.1 E/e' average: 7.2 MV dec time: 0.25 sec SV(LVOT): 62.5 ml Reading Physician:05:26 PM
== END ==
PROVIDERS: PCP Student in an Organized Health Care Education/Training Program; Referring Provider Student in an Organized Health Care Education/Training Program; Visit Provider Student in an Organized Health Care Education/Training Program
DX: I07.1 Rheumatic tricuspid insufficiency (principal); I20.8 Other forms of angina pectoris
CPT/HCPCS: 93306

== ENCOUNTER 2019-07-30 08:34 | Emergency (ER) | payer MEDICARE, MEDICAID, SELFPAY ==
[2019-07-30 08:45] VITALS: BP 118/67; PULSE 85; RESP 16; TEMP 36.7; O2SAT 98; BMI 27.4
--- NOTE | 2019-07-30 10:02 | DI.CT.S_ITS ---
PROCEDURE: CT FACIAL BONES W CON INDICATIONS: Left-sided facial pain and swelling/attention nose/maxilla TECHNIQUE: After the administration of intravenous contrast, 2.5 mm axial sections acquired from the mid-neck to the frontal sinuses, with coronal and sagittal reformats. For radiation dose reduction, the following was used: automated exposure control, adjustment of mA and/or kV according to patient size. COMPARISON: [facility], CT, HEAD WITHOUT CONTRAST, 11/27/2015, 8:07. FINDINGS: Image quality: Diagnostic. Soft tissues: No significant facial edema is present. No loculated fluid collections are identified. No soft tissue masses are identified. No enlarged lymph nodes. Vascular: Visualized vascular structures appear patent throughout. Bony vascular foramina and canals appear normal. No abnormal areas of soft tissue enhancement are evident. Mild atherosclerosis of the left carotid bulb is evident without luminal narrowing appreciated. Bones: Facial bones appear intact, without fractures, erosions, or destruction. Visualized portions of the skull base and auditory canals also appear normal. Sinuses: Paranasal sinuses are aerated without fluid levels, mucosal thickening, or mucoceles. Mastoid air cells are aerated. IMPRESSION: 1. No soft tissue masses, significant soft tissue edema, or fluid collections are identified involving the face. 2. No suspicious soft tissue enhancement phase. 3. No fractures. Dictated by: Jameson Dash M.D. on 07/30/2019 at 11:12 Approved by: Jameson Dash M.D. on 07/30/2019 at 11:15
--- NOTE | 2019-07-30 10:06 | ED.GENADULT ---
HPI - General Adult General Chief complaint: Nasal Problem Stated complaint: lt nasal/eye swelling/pain x10 days Time Seen by Provider: 07/30/19 09:42 Source: patient Mode of arrival: Ambulatory Limitations: no limitations History of Present Illness HPI narrative: Patient complains 10 days of left nose and maxillary sinus pain and pressure radiating up to the left frontal sinus with headache. No fever chills. No cough cold congestion. Patient seen by urgent care as well as her family physician and last [address] Hernandez. Placed on antibiotics for treatment of sinusitis. She does does does have a 1st follow-up with otolaryngology/ENT in 2 days, this Wednesday. Prior history of sinusitis but patient states this feels different. Patient has history of lymphoma treated years ago. Currently in remission. No active chemotherapy or radiation. Related Data Home Medications Medication Instructions Recorded Confirmed cholecalciferol (vitamin D3) 50 2,000 unit PO DAILY 11/23/17 07/30/19 mcg (2,000 unit) capsule Previous Rx's Medication Instructions Recorded Vivelle-Dot 0.05 mg/24 hr 1 patch TRANSDERMAL 2XW #24 each NS 09/14/18 transdermal patch levothyroxine 88 mcg tablet 88 mcg PO QAM #90 tab 02/23/19 BD Pen needle/Anna #100 each 04/10/19 teriparatide 20 mcg/dose (600 20 mcg SUBCUT DAILY #7.2 ml 04/12/19 mcg/2.4 mL) subcutaneous pen injector alprazolam 0.5 mg tablet 0.5 mg PO BID PRN #45 tab 05/10/19 sertraline 100 mg tablet 50 mg PO DAILY #30 tab 07/18/19 sulfamethoxazole 800 1 tab PO BID 5 Days #10 tab 07/27/19 mg-trimethoprim 160 mg tablet Allergies Allergy/AdvReac Type Severity Reaction Status Date / Time acetaminophen [From Fioricet] Allergy Unknown Verified 07/30/19 10:06 butalbital [From Fioricet] Allergy Unknown Verified 07/30/19 10:06 caffeine [From Fioricet] Allergy Unknown Verified 07/30/19 10:06 erythromycin base Allergy Unknown GI UPSET Verified 07/30/19 09:01 [ERYTHROMYCIN BASE] SEVERE methocarbamol [METHOCARBAMOL] Allergy Unknown Verified 07/30/19 09:01 oxycodone [From PERCOCET] Allergy Unknown HIVES Verified 07/30/19 09:01 adhesive tape AdvReac Intermediate Tears skin Verified 07/30/19 09:01 and reactive rashes amoxicillin [AMOXICILLIN] AdvReac Intermediate GI upset Verified 07/30/19 09:01 doxycycline AdvReac Intermediate GI upset Verified 07/30/19 09:01 Review of Systems Review of Systems Narrative: GENERAL: Denies chills, fatigue, malaise, fever, sweats. HEENT: Complains of left nose pain left maxillary sinus and frontal sinus pain. No epistaxis. RESPIRATORY: Denies dyspnea, cough, wheezing, hemoptysis, sputum. CARDIOVASCULAR: Denies chest pain, palpitations, orthopnea, edema, GASTROINTESTINAL: Denies nausea, vomiting, abdominal pain, diarrhea, constipation, melena. : Denies dysuria, frequency, incontinence, hematuria, urinary retention. MUSCULOSKELETAL: denies weakness, joint pain, or bony pain SKIN: Denies rash, skin lesions, or other NEUROLOGIC: Denies weakness, headache, numbness, change in speech, confusion, seizures, incoordination. PSYCHIATRIC: No concerning psychosocial issues. ROS Unobtainable: All systems reviewed & are unremarkable except as noted in HPI and below Patient History Medical History Abnormal Pap smear of cervix (Resolved ~1982) Anxiety (Chronic Unknown) GERD (gastroesophageal reflux disease) (Chronic Unknown) Hemorrhoids (Chronic Unknown) Herpes (Chronic Unknown) Hypothyroidism (Chronic ~2013) Lymphoma (Resolved 1995) Nasal abscess (Acute) Osteopenia (Chronic 10/2015) Osteoporosis (Chronic 10/2015) Ovarian cyst (Resolved Unknown) Painful menstrual periods (Resolved Unknown) Post-nasal drip (Acute) Recurrent sinusitis (Chronic Unknown) Sinus pain (Acute) Skin cancer (Resolved ~1997) Vertigo (Chronic Unknown) 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 Well-nourished, well-developed patient, in no distress, not toxic HEAD: Atraumatic. Normocephalic. EYES: Pupils equal round and reactive. Extraocular motions intact. No scleral icterus. No injection or drainage. ENT: Nose without bleeding, purulent drainage. Throat without erythema, tonsillar hypertrophy or exudate. Airway patent. Examination left nasal passage there is ulceration edema erythema in the medial wall. Possible abscess versus neoplasm. Left naris slightly edematous. Nasal labial fold intact. Tender to touch at the nares as well as the left maxillary sinus and left frontal sinus. NECK: Trachea midline. Non tender NEURO: AOx3. SKIN: No rash or erythema of visible areas Initial Vital Signs Initial Vital Signs: Vital Signs Temperature 98.1 F 07/30/19 08:45 Pulse Rate 85 07/30/19 08:45 Respiratory Rate 16 07/30/19 08:45 Blood Pressure 118/67 07/30/19 08:45 Pulse Oximetry 98 07/30/19 08:45 Course Orders Ordered: ED Orders 07/30/19 10:02 CT facial bones w con Stat 07/30/19 11:12 Complete Blood Count AUTO DIFF Stat Comprehensive Metabolic Panel Stat Discontinued Medications Sodium Chloride (Normal Saline 0.9%) 1,000 mls @ 1,000 mls/hr IV BOLUS ONE Stop: 07/30/19 11:01 Last Infusion: 07/30/19 12:25 Dose: 0 mls/hr Documented by: Admin: 07/30/19 11:23 Dose: 1,000 mls/hr Documented by: ADI Ketorolac Tromethamine (Toradol) 30 mg IV NOW ONE Stop: 07/30/19 12:04 Last Admin: 07/30/19 12:21 Dose: 30 mg Documented by: KEVIN Vital Signs Vital signs: Vital Signs - 8 hr 07/30/19 11:24 07/30/19 13:31 Pulse Rate 84 76 Respiratory Rate 15 14 Blood Pressure 127/65 Blood Pressure [Left Arm] 113/75 Pulse Oximetry 95 99 Medical Decision Making Differential Diagnosis Differential Diagnosis: Neoplastic lesion/abscess Lab Data Result diagrams: 07/30/19 11:12 07/30/19 11:12 Labs: Lab Results 07/30/19 07/30/19 Range/Units 11:12 11:12 WBC 6.0 (4.5-11.0) X10^3/uL RBC 4.79 (4.0-5.2) X10^6/uL Hgb 14.6 (12.0-16.0) g/dL Hct 42.6 (36-46) % MCV 88.8 (80-100) fL MCH 30.5 (26-34) PG MCHC 34.3 (30-36) % RDW 13.8 (11.6-14.8) % Plt Count 248 (150-400) X10^3/uL Neut % (Auto) 68.8 (50-75) % Lymph % (Auto) 21.1 L (25-40) % [place] % (Auto) 6.7 (3-14) % Eos % (Auto) 2.4 (2-4) % Baso % (Auto) 1.0 (0-2) % Neut # (Auto) 4100 (8179-5503) /uL Lymph # (Auto) 1300 (7323-1641) /uL [place] # (Auto) 400 (0-900) /uL Eos # (Auto) 100 (0-450) /uL Baso # (Auto) 100 (0-100) /uL Sodium 140 (137-145) mmol/L Potassium 4.3 (3.4-5.1) mmol/L Chloride 108 H (98-107) mmol/L Carbon Dioxide 24 (22-32) mmol/L BUN 20 H (7-17) mg/dL Creatinine 0.72 (0.52-1.04) mg/dL Estimated GFR > 60.0 (>60) mL/min BUN/Creatinine Ratio 27.8 H (6-22) Glucose 91 (70-100) mg/dL Calcium 9.1 (8.4-10.2) mg/dL Total Bilirubin 0.4 (0.2-1.3) mg/dL AST 27 (14-36) IU/L ALT 23 (<35) IU/L Alkaline Phosphatase 107 (38-126) U/L Total Protein 7.2 (6.3-8.2) g/dL Albumin 4.0 (3.5-5.0) g/dL Globulin 3.2 (1.7-4.1) g/dL Albumin/Globulin Ratio 1.3 (1.0-2.8) Discharge Plan Departure Patient Disposition: Home Clinical Impression: Sinus pain Discharge Date/Time: 07/30/19 13:31 Instructions: DI for Sinusitis Activity Restrictions/Additional Instructions: Return if worse. See your ENT provider on Wednesday as scheduled. Return if worse. Prescriptions: No Action cholecalciferol (vitamin D3) 2,000 unit capsule 2,000 unit PO DAILY RF: 0 sertraline 100 mg tablet 50 mg PO DAILY Qty: 30 RF: 1 levothyroxine 88 mcg tablet 88 mcg PO QAM Qty: 90 RF: 3 (DME) BD Pen needle/Anna 32G X 4mm Qty: 100 RF: 3 Forteo 20 mcg/dose - 600 mcg/2.4 mL pen injector 20 mcg SUBCUT DAILY Qty: 7.2 RF: 5 alprazolam 0.5 mg tablet 0.5 mg PO BID PRN (Reason: anxiety) Qty: 45 RF: 5 sulfamethoxazole-trimethoprim [Bactrim DS] 800-160 mg tablet 1 tab PO BID 5 Days Qty: 10 RF: 0 estradiol [Vivelle-Dot] 0.05 mg/24 hr patch semiweekly 1 patch Transdermal 2XW Qty: 24 RF: 3 Referrals: Ankit Cast MD [Primary Care Provider] -
[2019-07-30] MEDS: SODIUM CHLORIDE 0.9% 1,000 ML 1000 ML IV (11:23)
[2019-07-30 11:24] VITALS: BP 113/75; PULSE 84; RESP 15; O2SAT 95
[2019-07-30 11:24] LABS: Add Manual Diff / Slide Review NO; Basophils Absolute Auto 100 /uL (0-100); Eosinophils Absolute Auto 100 /uL (0-450); Eosinophils Percent Auto 2.4 % (2-4); Hematocrit 42.6 % (36-46); Hemoglobin 14.6 g/dL (12.0-16.0); Lymphocytes Absolute Auto 1300 /uL (1100-4500); Lymphocytes Percent Auto 21.1 % (25-40); Mean Corpuscular HGB Conc 34.3 % (30-36); Mean Corpuscular Hemoglobin 30.5 PG (26-34); Mean Corpuscular Volume 88.8 fL (80-100); Monocytes Absolute Auto 400 /uL (0-900); Monocytes Percent Auto 6.7 % (3-14); Neutrophils Absolute Auto 4100 /uL (1500-7000); Neutrophils Percent Auto 68.8 % (50-75); Platelet Count 248 X10^3/uL (150-400); Red Blood Cell Count 4.79 X10^6/uL (4.0-5.2); Red Cell Distribution Width 13.8 % (11.6-14.8)
[2019-07-30 11:34] LABS: Alanine Aminotransferase 23 IU/L (<35); Albumin Globulin Ratio 1.3 (1.0-2.8); Alkaline Phosphatase 107 U/L (38-126); Aspartate Aminotransferase 27 IU/L (14-36); BUN Creatinine Ratio 27.8 (6-22); Bilirubin Total 0.4 mg/dL (0.2-1.3); Blood Urea Nitrogen 20 mg/dL (7-17); Calcium 9.1 mg/dL (8.4-10.2); Carbon Dioxide 24 mmol/L (22-32); Chloride 108 mmol/L (98-107); Estimated Glomerular Filt Rate > 60.0 mL/min (>60); Globulin 3.2 g/dL (1.7-4.1); Glucose 91 mg/dL (70-100); HEMOLYSIS < 15 (0-50); Potassium 4.3 mmol/L (3.4-5.1); Sodium 140 mmol/L (137-145); Total Protein 7.2 g/dL (6.3-8.2)
--- NOTE | 2019-07-30 12:03 | PC.NURSE ---
patient requested an antinflammatory for pain. Provider notified and gave verbal order for toradol 30mg IV.
[2019-07-30] MEDS: KETOROLAC 60 MG/2 ML VIAL 30 MG IV (12:21)
[2019-07-30 13:31] VITALS: BP 127/65; PULSE 76; RESP 14; O2SAT 99
== END 2019-07-30 13:31 | disposition home or self-care (01) ==
PROVIDERS: Emergency Provider Emergency Medicine; PCP Student in an Organized Health Care Education/Training Program
DX: J34.89 Other specified disorders of nose and nasal sinuses (principal); R51 Headache
CPT/HCPCS: 36415; 70487; 80053; 85025; 96361; 96374; 99284; J1885; Q9967

== ENCOUNTER → 2019-09-18 14:51 | Outpatient (CLI) | payer MEDICARE, MEDICAID, SELFPAY ==
--- NOTE | 2019-09-18 14:53 | DI.MG.S_ITS ---
BILATERAL DIGITAL SCREENING MAMMOGRAM 3D/2D WITH CAD: 09/18/2019 CLINICAL: Routine screening. Comparison is made to exams dated: 07/07/2018 mammogram, 07/16/2017 mammogram, and 06/25/2017 mammogram - [facility]. There are scattered fibroglandular elements in both breasts. Current study was also evaluated with a Computer Aided Detection (CAD) system. No significant masses, calcifications, or other findings are seen in either breast. There has been no significant interval change. IMPRESSION: NEGATIVE There is no mammographic evidence of malignancy. A 1 year screening mammogram is recommended. This exam was interpreted at Station ID: [id number]. NOTE: For mammograms, a report in lay terms will be sent to the patient. Approximately 15% of breast malignancies will not be visualized mammographically. In the management of a palpable breast mass, a negative mammogram must not discourage biopsy of a clinically suspicious lesion. Electronically Signed By: Bridgett bajwa/aggie:09/18/2019 16:28:28 letter sent: Normal Exam ACR BI-RADS Category 1: Negative [id number]
== END ==
PROVIDERS: PCP Student in an Organized Health Care Education/Training Program; Referring Provider Student in an Organized Health Care Education/Training Program; Visit Provider Student in an Organized Health Care Education/Training Program
DX: Z12.31 Encounter for screening mammogram for malignant neoplasm of breast (principal); M85.852 Other specified disorders of bone density and structure, left thigh; Z78.0 Asymptomatic menopausal state; C81.90 Hodgkin lymphoma, unspecified, unspecified site; F17.200 Nicotine dependence, unspecified, uncomplicated; Z90.722 Acquired absence of ovaries, bilateral; Z82.62 Family history of osteoporosis
CPT/HCPCS: 77063; 77067; 77080

== ENCOUNTER → 2019-10-04 08:33 | Outpatient (CLI) | payer MEDICARE, MEDICAID, SELFPAY ==
[2019-10-04 11:29] LABS: TSH w/ Reflex to FT4 1.47 uIU/mL (0.47-4.68)
== END ==
PROVIDERS: PCP Student in an Organized Health Care Education/Training Program; Referring Provider Student in an Organized Health Care Education/Training Program; Visit Provider Student in an Organized Health Care Education/Training Program
DX: R63.5 Abnormal weight gain (principal)
CPT/HCPCS: 36415; 84443

== ENCOUNTER 2019-12-07 20:07 | Emergency (ER) | payer MEDICARE, MEDICAID, SELFPAY ==
[2019-12-07 20:16] VITALS: BP 114/57; PULSE 88; RESP 14; TEMP 36.5; O2SAT 96; BMI 26.6
--- NOTE | 2019-12-07 20:21 | DI.CT.S_ITS ---
PROCEDURE: CT KIDNEY URETER BLADDER (KUB) INDICATIONS: new, acute Right flank pain, ? stone TECHNIQUE: Noncontrast 5 mm thick sections acquired from the diaphragms to the symphysis. 5 mm thick coronal and sagittal reformats were then performed. For radiation dose reduction, the following was used: automated exposure control, adjustment of mA and/or kV according to patient size. COMPARISON: None. FINDINGS: Image quality: Excellent. Lung bases: Lung bases are clear. Heart size is normal. Urinary system: Right kidney is slightly enlarged with moderate right-sided hydronephrosis and hydroureter. There is a 2-3 millimeter stone seen in the region of right UVJ consistent with obstructing right UVJ stone. No left-sided kidney stones. No left-sided hydronephrosis or perinephric fat stranding. Left ureter is within normal limits. Bladder wall thickness is normal; no calcified bladder stones. Other solid organs: Liver is normal in size. Numerous well-circumscribed hypodensities are seen scattered in liver parenchyma and measures up to 1.1 cm in size in right lobe of liver which may represent hepatic cysts. Gallbladder is within normal limits.. Pancreas is normal in contours. Spleen is normal in size. No adrenal nodules. Peritoneum and bowel: Unenhanced bowel loops demonstrate normal wall thickness and caliber. No free fluid or air. Appendix is visualized and is within normal limits. Sigmoid diverticulosis is seen, no CT evidence of acute diverticulitis. Nodes and vessels: No retroperitoneal or mesenteric adenopathy by size criteria. Aorta and inferior vena cava are normal in caliber. Abdominal wall: No ventral hernias. Pelvis: No free pelvic fluid. No inguinal hernias or adenopathy. Bones: No suspicious bony lesions. No vertebral body compression fractures. IMPRESSION: 1. 2-3 millimeter right UVJ stone with moderate left right-sided hydronephrosis and hydroureter. No left-sided renal stone or hydronephrosis. Normal appearing left ureter and urinary bladder. 2. Numerous hypodensities scattered in liver parenchyma likely represent hepatic cysts or small hemangioma. Evaluation is limited due to lack of contrast. Follow-up study with dedicated CT or MRI of abdomen without and with contrast can be done for further evaluation. 3. No bowel obstruction. No abnormal bowel wall thickening. Normal appendix. No free fluid or free air. Dictated by: Martín Dietz M.D. on 12/07/2019 at 20:55 Approved by: Martín Dietz M.D. on 12/07/2019 at 20:58
--- NOTE | 2019-12-07 20:26 | ED.FEMALEGU ---
HPI - Female Genitourinary General Chief complaint: Urogenital-Female Stated complaint: right sided abd pain Time Seen by Provider: 12/07/19 20:14 Source: patient Mode of arrival: Ambulatory Limitations: no limitations History of Present Illness HPI Narrative: 59-year-old woman with a history of hypothyroidism and seasonal allergies presents with acute onset right flank radiating into the right lower quadrant abdominal pain. She describes it as severe, sharp colicky associated with nausea. She does not describe recent fevers, constipation, abdominal pain, chills, cough, vomiting or diarrhea. She has no history of prior kidney stones nor pyelonephritis. Related Data Home Medications Medication Instructions Recorded Confirmed cholecalciferol (vitamin D3) 50 2,000 unit PO DAILY 11/23/17 09/27/19 mcg (2,000 unit) capsule ascorbate calcium (vitamin C) 500 1 gram PO DAILY tab 08/29/19 09/27/19 mg tablet rn-to-PP-[place] 3,6,9 #3 400 mcg mcg PO 08/29/19 09/27/19 capsule Previous Rx's Medication Instructions Recorded Vivelle-Dot 0.05 mg/24 hr 1 patch TRANSDERMAL 2XW #24 each NS 09/14/18 transdermal patch levothyroxine 88 mcg tablet 88 mcg PO QAM #90 tab 02/23/19 BD Pen needle/Anna #100 each 04/10/19 teriparatide 20 mcg/dose (600 20 mcg SUBCUT DAILY #7.2 ml 04/12/19 mcg/2.4 mL) subcutaneous pen injector alprazolam 0.5 mg tablet 0.5 mg PO BID PRN #45 tab 05/10/19 sertraline 100 mg tablet 100 mg PO DAILY #30 tab 10/16/19 montelukast 10 mg tablet 10 mg PO DAILY #90 tab 11/21/19 oxycodone 5 mg PO Q6H PRN #10 tab 12/07/19 Allergies Allergy/AdvReac Type Severity Reaction Status Date / Time acetaminophen [From Fioricet] Allergy Unknown Verified 12/07/19 20:16 butalbital [From Fioricet] Allergy Unknown Verified 12/07/19 20:16 caffeine [From Fioricet] Allergy Unknown Verified 12/07/19 20:16 erythromycin base Allergy Unknown GI UPSET Verified 12/07/19 20:16 [ERYTHROMYCIN BASE] SEVERE methocarbamol [METHOCARBAMOL] Allergy Unknown Verified 12/07/19 20:16 oxycodone [From PERCOCET] Allergy Unknown HIVES Verified 12/07/19 20:16 adhesive tape AdvReac Intermediate Tears skin Verified 12/07/19 20:16 and reactive rashes amoxicillin [AMOXICILLIN] AdvReac Intermediate GI upset Verified 12/07/19 20:16 doxycycline AdvReac Intermediate GI upset Verified 12/07/19 20:16 liquid percocet Allergy Mild Rash Uncoded 12/07/19 20:16 Review of Systems Review of Systems Narrative: Remainder of review of systems including constitutional, ENT, cardiovascular, respiratory, GI, , musculoskeletal, skin, neurologic and psychiatric systems reviewed and are unremarkable except as noted in HPI. 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 Able to give a complete and coherent history. Well-nourished well-developed HEENT: Moist mucous membranes, normal sclera with reactive pupils, Neck: No JVD, supple Respiratory: Lungs are clear to auscultation, no wheezing no rales no rhonchi. Full and symmetrical air movement Cardiac: Regular rate and rhythm no murmurs no bruits Abdomen: Soft,nontender, no rebound no guarding, good bowel tones, right flank pain Skin: Warm and dry, no rashes Neurologic: Grossly neurologically intact with no obvious asymmetries or abnormalities Extremities: No trauma, well perfused Psych: Cooperative, appropriate insight and affect Initial Vital Signs Initial Vital Signs: Vital Signs Temperature 97.7 F 12/07/19 20:16 Pulse Rate 88 12/07/19 20:16 Respiratory Rate 14 12/07/19 20:16 Blood Pressure 114/57 L 12/07/19 20:16 Pulse Oximetry 96 12/07/19 20:16 Course Orders Ordered: ED Orders 12/07/19 20:17 Complete Blood Count AUTO DIFF Stat Comprehensive Metabolic Panel Stat 12/07/19 20:20 Urinalysis and Microscopic Stat 12/07/19 20:21 CT kidney ureter bladder (KUB) Stat Discontinued Medications Lidocaine HCl 5.4 ml/ Sodium (Chloride) 55.4 mls @ 332.4 mls/hr IV NOW ONE Stop: 12/07/19 20:21 Last Infusion: 12/07/19 21:08 Dose: 0 mls/hr Documented by: Admin: 12/07/19 20:34 Dose: 332.4 mls/hr Documented by: ADI Sodium Chloride (Normal Saline 0.9%) 1,000 mls @ 1,000 mls/hr IV BOLUS ONE Stop: 12/07/19 21:19 Last Admin: 12/07/19 20:31 Dose: 1,000 mls/hr Documented by: ADI Ketorolac Tromethamine (Toradol) 15 mg IV NOW ONE Stop: 12/07/19 20:21 Last Admin: 12/07/19 20:31 Dose: 15 mg Documented by: ADI Vital Signs Vital signs: Vital Signs - 8 hr 12/07/19 20:16 Temperature 97.7 F Pulse Rate 88 Respiratory Rate 14 Blood Pressure 114/57 L Pulse Oximetry 96 MDM - Female Genitourinary Medical Records Attestation: I reviewed the patient's medical records. Lab Data Attestation: I reviewed the patient's lab results. Result diagrams: 12/07/19 20:17 12/07/19 20:17 Labs: Lab Results 12/07/19 12/07/19 12/07/19 Range/Units 20:17 20:17 20:20 WBC 7.8 (4.5-11.0) X10^3/uL RBC 4.57 (4.0-5.2) X10^6/uL Hgb 13.8 (12.0-16.0) g/dL Hct 41.6 (36-46) % MCV 91.0 (80-100) fL MCH 30.2 (26-34) PG MCHC 33.2 (30-36) % RDW 13.9 (11.6-14.8) % Plt Count 202 (150-400) X10^3/uL Neut % (Auto) 64.2 (50-75) % Lymph % (Auto) 27.7 (25-40) % Crane % (Auto) 6.2 (3-14) % Eos % (Auto) 1.2 L (2-4) % Baso % (Auto) 0.7 (0-2) % Neut # (Auto) 5000 (0182-5569) /uL Lymph # (Auto) 2200 (9941-1849) /uL Crane # (Auto) 500 (0-900) /uL Eos # (Auto) 100 (0-450) /uL Baso # (Auto) 100 (0-100) /uL Sodium 140 (137-145) mmol/L Potassium 4.1 (3.4-5.1) mmol/L Chloride 105 (98-107) mmol/L Carbon Dioxide 29 (22-32) mmol/L BUN 19 H (7-17) mg/dL Creatinine 0.96 (0.52-1.04) mg/dL Estimated GFR 59.9 L (>60) mL/min BUN/Creatinine Ratio 19.8 (6-22) Glucose 112 H (70-100) mg/dL Calcium 9.6 (8.4-10.2) mg/dL Total Bilirubin 0.3 (0.2-1.3) mg/dL AST 23 (14-36) IU/L ALT 21 (<35) IU/L Alkaline Phosphatase 90 (38-126) U/L Total Protein 7.2 (6.3-8.2) g/dL Albumin 4.0 (3.5-5.0) g/dL Globulin 3.2 (1.7-4.1) g/dL Albumin/Globulin Ratio 1.3 (1.0-2.8) Urine Color Yellow Urine Appearance Cloudy Urine pH 8.0 (4.5-8.0) Ur Specific [place]onson 1.020 (1.000-1.035) Urine Protein Negative (Negative) Urine Glucose (UA) Negative (Negative) g/dL Urine Ketones Negative (NEGATIVE) Urine Occult Blood Negative (Negative) Urine Nitrate Negative (Negative) Urine Bilirubin Negative (NEGATIVE) Urine Urobilinogen 0.2 (0.2) E.U./dL Ur Leukocyte Esterase Negative (NEGATIVE) Urine RBC 0-1/hpf (0-5/HPF) Urine WBC 0-1/hpf (0-5/HPF) Ur Squamous Epith Cells 1-5 /hpf (0-5/HPF) Ur Transition Epith Cell 1-5/hpf (0-5/HPF) Other Crystals 2+ amorphous crystal Urine Bacteria None seen (None) Ur Culture Indicated? Cult not indicated Imaging Data CT scan - abdomen/pelvis: Radiologist's Impression: FINDINGS: Image quality: Excellent. Lung bases: Lung bases are clear. Heart size is normal. Urinary system: Right kidney is slightly enlarged with moderate right-sided hydronephrosis and hydroureter. There is a 2-3 millimeter stone seen in the region of right UVJ consistent with obstructing right UVJ stone. No left-sided kidney stones. No left-sided hydronephrosis or perinephric fat stranding. Left ureter is within normal limits. Bladder wall thickness is normal; no calcified bladder stones. Other solid organs: Liver is normal in size. Numerous well-circumscribed hypodensities are seen scattered in liver parenchyma and measures up to 1.1 cm in size in right lobe of liver which may represent hepatic cysts. Gallbladder is within normal limits.. Pancreas is normal in contours. Spleen is normal in size. No adrenal nodules. Peritoneum and bowel: Unenhanced bowel loops demonstrate normal wall thickness and caliber. No free fluid or air. Appendix is visualized and is within normal limits. Sigmoid diverticulosis is seen, no CT evidence of acute diverticulitis. Nodes and vessels: No retroperitoneal or mesenteric adenopathy by size criteria. Aorta and inferior vena cava are normal in caliber. Abdominal wall: No ventral hernias. Pelvis: No free pelvic fluid. No inguinal hernias or adenopathy. Bones: No suspicious bony lesions. No vertebral body compression fractures. IMPRESSION: 1. 2-3 millimeter right UVJ stone with moderate left right-sided hydronephrosis and hydroureter. No left-sided renal stone or hydronephrosis. Normal appearing left ureter and urinary bladder. 2. Numerous hypodensities scattered in liver parenchyma likely represent hepatic cysts or small hemangioma. Evaluation is limited due to lack of contrast. Follow-up study with dedicated CT or MRI of abdomen without and with contrast can be done for further evaluation. 3. No bowel obstruction. No abnormal bowel wall thickening. Normal appendix. No free fluid or free air. Dictated by: Martín Dietz M.D. on 12/07/2019 at 20:55 MDM Narrative Medical decision making narrative: 59-year-old woman with classic presentation for acute ureterolithiasis. No evidence infection, mass tumor and CT scan does confirm 2-3 mm stone at the right UVJ Pain was initially controlled with Toradol and IV lidocaine. Beginning filled again. Will give her an additional 5 mg of oxycodone and discharge her home with prescription for oxycodone and Flomax as well as a urine strainer. She is safe for home discharge Discharge Plan Departure Patient Disposition: Home Clinical Impression: Ureterolithiasis Instructions: DI for Kidney Stones Activity Restrictions/Additional Instructions: Thank you for coming in today You do have a 2-3 mm kidney stone that is almost ready to drop into your bladder. This is what has been causing your severe pain. There is no sign of bladder or kidney infection. To insure that this stone will pass easily I am going to have to take 0.4 mg of tamsulosin every day. You can stop this once the stone has passed Using 400 mg of ibuprofen (2 hjgj-hzt-mwnojod pills) and 1 Tylenol every 6 hours can be very helpful in controlling pain. For severe pain use 5 mg of oxycodone and ibuprofen together. 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 Delvalle. If you developed fevers, new or worsening symptoms would be very appropriate to return to the emergency department. Prescriptions: New oxycodone 5 mg tablet 5 mg PO Q6H PRN (Reason: pain) Qty: 10 RF: 0 No Action cholecalciferol (vitamin D3) 2,000 unit capsule 2,000 unit PO DAILY RF: 0 wq-vn-WK-[place] 3,6,9 #3 400 mcg capsule PO RF: 0 ascorbate calcium (vitamin C) 500 mg tablet 1 gram PO DAILY RF: 0 levothyroxine 88 mcg tablet 88 mcg PO QAM Qty: 90 RF: 3 (DME) BD Pen needle/Anna 32G X 4mm Qty: 100 RF: 3 Forteo 20 mcg/dose - 600 mcg/2.4 mL pen injector 20 mcg SUBCUT DAILY Qty: 7.2 RF: 5 alprazolam 0.5 mg tablet 0.5 mg PO BID PRN (Reason: anxiety) Qty: 45 RF: 5 sertraline 100 mg tablet 100 mg PO DAILY Qty: 30 RF: 1 montelukast [Singulair] 10 mg tablet 10 mg PO DAILY Qty: 90 RF: 1 estradiol [Vivelle-Dot] 0.05 mg/24 hr patch semiweekly 1 patch Transdermal 2XW Qty: 24 RF: 3 Referrals: Ankit Cast MD [Primary Care Provider] - Verónica Delvalle MD [Physician] -
[2019-12-07 20:27] LABS: Appearance Urine UA CLOUDY; Bilirubin Urine UA NEGATIVE (NEGATIVE); Color Urine UA YELLOW; Glucose Urine UA NEGATIVE (Negative); Ketones Urine UA NEGATIVE (NEGATIVE); Leukocyte Esterase Urine UA NEGATIVE (NEGATIVE); Nitrite Urine UA NEGATIVE (Negative); Occult Blood Urine UA NEGATIVE (Negative); Protein Urine UA NEGATIVE (Negative); Urobilinogen Urine UA 0.2 E.U./dL (0.2)
[2019-12-07 20:29] LABS: Add Manual Diff / Slide Review NO; Basophils Absolute Auto 100 /uL (0-100); Basophils Percent Auto 0.7 % (0-2); Eosinophils Absolute Auto 100 /uL (0-450); Eosinophils Percent Auto 1.2 % (2-4); Hematocrit 41.6 % (36-46); Hemoglobin 13.8 g/dL (12.0-16.0); Lymphocytes Absolute Auto 2200 /uL (1100-4500); Lymphocytes Percent Auto 27.7 % (25-40); Mean Corpuscular HGB Conc 33.2 % (30-36); Mean Corpuscular Hemoglobin 30.2 PG (26-34); Monocytes Absolute Auto 500 /uL (0-900); Monocytes Percent Auto 6.2 % (3-14); Neutrophils Absolute Auto 5000 /uL (1500-7000); Neutrophils Percent Auto 64.2 % (50-75); Platelet Count 202 X10^3/uL (150-400); Red Blood Cell Count 4.57 X10^6/uL (4.0-5.2); Red Cell Distribution Width 13.9 % (11.6-14.8); White Blood Cell Count 7.8 X10^3/uL (4.5-11.0)
[2019-12-07 20:29] LABS: Bacteria Urine None Seen
[2019-12-07] MEDS: SODIUM CHLORIDE 0.9% 1,000 ML 1000 ML IV (20:31)
[2019-12-07] MEDS: KETOROLAC 60 MG/2 ML VIAL 15 MG IV (20:31)
[2019-12-07] MEDS: LIDOCAINE 2% 5.4 ML in SODIUM CHLORIDE 0.9% 50 ML 332.4 ML IV (20:34)
[2019-12-07 20:46] LABS: RBC Urine 0-1/HPF (0-5/HPF); Squamous Epithelial Cell Urine 1-5 /HPF (0-5/HPF); Transitional Epi Cells Urine 1-5/HPF (0-5/HPF); WBC Urine 0-1/HPF (0-5/HPF)
[2019-12-07 20:47] LABS: Culture Indicated Urine Cult Not Indicated; Other Crystals Urine 2+ Amorphous Crystal
[2019-12-07 20:52] LABS: Alanine Aminotransferase 21 IU/L (<35); Albumin Globulin Ratio 1.3 (1.0-2.8); Alkaline Phosphatase 90 U/L (38-126); Aspartate Aminotransferase 23 IU/L (14-36); BUN Creatinine Ratio 19.8 (6-22); Bilirubin Total 0.3 mg/dL (0.2-1.3); Blood Urea Nitrogen 19 mg/dL (7-17); Calcium 9.6 mg/dL (8.4-10.2); Carbon Dioxide 29 mmol/L (22-32); Chloride 105 mmol/L (98-107); Estimated Glomerular Filt Rate 59.9 mL/min (>60); Globulin 3.2 g/dL (1.7-4.1); Glucose 112 mg/dL (70-100); HEMOLYSIS < 15 (0-50); Potassium 4.1 mmol/L (3.4-5.1); Sodium 140 mmol/L (137-145); Total Protein 7.2 g/dL (6.3-8.2)
[2019-12-07] MEDS: OXYCODONE IR 5 MG TABLET 10 MG PO (22:02)
[2019-12-07 22:09] VITALS: BP 139/73; PULSE 89; RESP 16; O2SAT 96
[2019-12-07] MEDS: TAMSULOSIN 0.4 MG CAPSULE PO (22:35)
== END 2019-12-07 22:41 | disposition home or self-care (01) ==
PROVIDERS: Emergency Provider Emergency Medicine; PCP Student in an Organized Health Care Education/Training Program
DX: N20.2 Calculus of kidney with calculus of ureter (principal); R11.0 Nausea
CPT/HCPCS: 36415; 74176; 80053; 81001; 85025; 96361; 96365; 96375; 99284; J1885

== ENCOUNTER → 2019-12-08 15:24 | Outpatient (CLI) | payer MEDICARE, MEDICAID, SELFPAY ==
[2019-12-18 14:27] LABS: Stone Analysis Source URINARY TRACT
[2019-12-18 14:28] LABS: Size 2X2
== END ==
PROVIDERS: PCP Student in an Organized Health Care Education/Training Program; Referring Provider Student in an Organized Health Care Education/Training Program; Visit Provider Student in an Organized Health Care Education/Training Program
DX: Z20.1 Contact with and (suspected) exposure to tuberculosis (principal)
CPT/HCPCS: 82365

== ENCOUNTER → 2020-01-25 15:55 | Outpatient (CLI) | payer MEDICARE, MEDICAID, SELFPAY ==
[2020-01-25 17:18] LABS: Hematocrit 43.5 % (36-46); Hemoglobin 14.2 g/dL (12.0-16.0); Mean Corpuscular HGB Conc 32.7 % (30-36); Mean Corpuscular Hemoglobin 29.9 PG (26-34); Mean Corpuscular Volume 91.4 fL (80-100); Platelet Count 194 X10^3/uL (150-400); Red Blood Cell Count 4.75 X10^6/uL (4.0-5.2); Red Cell Distribution Width 13.2 % (11.6-14.8); White Blood Cell Count 6.9 X10^3/uL (4.5-11.0)
[2020-01-25 19:45] LABS: COVID19 -Nasal RAPID Negative (Negative)
== END ==
PROVIDERS: PCP Student in an Organized Health Care Education/Training Program; Referring Provider Internal Medicine; Visit Provider Internal Medicine
DX: G47.34 Idiopathic sleep related nonobstructive alveolar hypoventilation (principal); Z11.59 Encounter for screening for other viral diseases
CPT/HCPCS: 36415; 85027; 87635; C9803

== ENCOUNTER → 2020-01-26 06:43 | Outpatient (CLI) | payer MEDICARE, MEDICAID, SELFPAY ==
--- NOTE | 2020-02-02 11:13 | PM.PFT.1 ---
Pulmonary Function Test Referral & Results Date Patient Seen: 01/26/20 Requesting provider: Ankit Cast Results: The spirometry demonstrates an FVC of 2.92 L which is 83% of predicted. The FEV1 was measured at 2.28 L which is 83% of predicted. The FEV1/FVC ratio was 78 which is 99% of predicted. Following the administration of bronchodilator there was no appreciable change. Lung volumes show an SVC of 2.52 L which is 78% of predicted. The diffusing capacity was measured at 18.18 which is 71% of predicted. No hemoglobin value was provided, so no correction for potential anemia could be made, if appropriate. The maximum voluntary ventilation was reduced Interpretation: This study demonstrates perhaps very mild obstructive lung disease based on slight reduction FEV1 although FEV1/FVC ratio was balanced and there is no improvement post bronchodilator There is also mild restrictive lung disease present based on reduction SVC Unless patient is anemic, the reduced diffusing capacity also suggest an element of disease at the capillary alveolar level
== END ==
PROVIDERS: PCP Student in an Organized Health Care Education/Training Program; Referring Provider Student in an Organized Health Care Education/Training Program; Visit Provider Student in an Organized Health Care Education/Training Program
DX: J96.21 Acute and chronic respiratory failure with hypoxia (principal); Z87.891 Personal history of nicotine dependence
CPT/HCPCS: 94060; 94726; 94729

== ENCOUNTER → 2020-03-07 09:02 | Outpatient (CLI) | payer MEDICARE, MEDICAID, SELFPAY ==
--- NOTE | 2020-03-07 09:04 | DIET.PN ---
Dietary Progress Note Assessment: 59y F referred to nutrition by PCP for health surveillence related to mineral management for osteoporosis and weight management per reccs from pts sleep study. 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 Pt arms and legs proportional for frame but pt has central adiposity, pt reports feeling bloated and having fat in her middle. Pt taking 750mg calcium, 2,000IU Vit D daily Pt lives c her jemal and reports they sow over snacks and naps. Pt feels her biggest downfall is eating in front of the TV using her lap as a table. Pt has some GERD and cannot take NSAIDs without aggravating it. Pt does take prilosec as needed. HT: 5'6 WT: 165# UBW: 130-35# BMI: 27 (overweight) Labs: BG 112 Usual Day: wakes 4-5am feels rested half the time thyroid meds 1-2 coffee c almond creamer plans for day B(8-10a): chili, eggs c hashbrowns, omelet nap (an hour) ibrahima around house-cleans drawer, organizing sometimes just one big meal at night: little things throughout time rather than a meal, usually in front of a TV: chicken, cream cheese, avocados, big salad c everything in it, loves castro, popcorn has potato chip problem/doritos, cheetoes, pork rinds. Has been told in the past to open a bag of chips or drink salt water if she feels dizzy. Nutrition Diagnosis: 1. overweight r/t undesirable food choices and physical inactivity aeb pt lacks daily structure supporting regular meals and physical activity, pt eats in front of the television, food recall shows reliance on high sodium refined carbohydrate snacks, pt has no current planned physical activity. 2. inadequate mineral intake (calcium) r/t low intake calcium rich foods aeb pt food recall showing low intake calcium rich foods, pt dx c ostoporosis. Interventions: 1. To support habit change, discussed role of habits in eating and physical activity. Pt had large life change 3y ago leading to changes in eating and activity pattern secondary to taste and energy changes. Strongly encouraged pt to break the habit of eating meals and snacks in front of the television to increase mindfulness on hunger and fullness cues. 2. To support weight regulation for cardiovascular and sleep health, educated pt on plate balance using handout and food models. Encouraged pt to create meals and snacks which are 1/4 pro, 1/4 cho, and 1/2 F/nonstarchy veggies to ensure nutritional adequacy and appetite satisfaction. Pt generally eating one food component at a time and goes back to fridge on multiple occasions. 3. To support weight regulation, encouraged pt to be more intentionally active during her day. Pt [place] so encouraged pt to go outside and climb 1-2 flights stairs to tolerance within her day, take dog for short walk, walk with grocery cart all aisles of store when shopping. Encouraged pt to complete physical activity to support her health without endangering herself. 4. To support bone health, encouraged pt to continue current supplementation regimen as she does not eat much calcium rich food. Encouraged pt to limit salty high carb snacks to encourage intake of a variety of nutritive foods rather than crowding them out with processed snacks. 5. To support weight regulation, using handout, introduced pt to hunger scale to start to identify her hunger and fullness cues. Pt will start eating at a 3 and stopping at an 8 to better understand ideal meal timing and portion sizes for her body. Pt will use hunger scale to identify when she is emotional/boredom/mindlessly eating and will discuss this with her therapist as desired to start developing better coping mechanisms that are not food related. Monitoring/Evaluations: Pt will discuss emotional/mindless eating c her therapist as desired
== END ==
PROVIDERS: PCP Student in an Organized Health Care Education/Training Program; Referring Provider Student in an Organized Health Care Education/Training Program; Visit Provider Student in an Organized Health Care Education/Training Program
DX: M81.0 Age-related osteoporosis without current pathological fracture (principal); K21.9 Gastro-esophageal reflux disease without esophagitis; E66.3 Overweight; Z68.27 Body mass index [BMI] 27.0-27.9, adult; Z71.3 Dietary counseling and surveillance
CPT/HCPCS: 97802

== ENCOUNTER → 2020-03-13 07:35 | Outpatient (CLI) | payer MEDICARE, MEDICAID, SELFPAY ==
[2020-03-13 08:42] LABS: Influenza A - CEPHEID Flu A NEGATIVE (NEGATIVE); Influenza B - CEPHEID Flu B NEGATIVE (NEGATIVE)
[2020-03-13 09:01] LABS: COVID19 -Nasal RAPID Negative (Negative)
== END ==
PROVIDERS: PCP Student in an Organized Health Care Education/Training Program; Visit Provider Nurse Practitioner Family
DX: Z20.822 Contact with and (suspected) exposure to COVID-19 (principal); J34.89 Other specified disorders of nose and nasal sinuses
CPT/HCPCS: 87502; 87635

== ENCOUNTER → 2020-03-14 15:25 | Outpatient (CLI) | payer MEDICARE, MEDICAID, SELFPAY ==
--- NOTE | 2020-03-14 15:26 | DI.RAD.S_ITS ---
PROCEDURE: XR SINUS <3V INDICATIONS: Facial swelling TECHNIQUE: 4 views of the sinuses were acquired. COMPARISON: None. FINDINGS: Sinuses: The visualized sinuses demonstrate no air-fluid levels or mucosal thickening. The visualized mastoids also appear clear. Bones: No suspicious bony lesions. Nasal septum is midline. IMPRESSION: Normal sinus series. No nasal bone fracture Dictated by: Ford Wahl M.D. on 03/14/2020 at 17:18 Approved by: Ford Wahl M.D. on 03/14/2020 at 17:18
== END ==
PROVIDERS: PCP Student in an Organized Health Care Education/Training Program; Referring Provider Student in an Organized Health Care Education/Training Program; Visit Provider Student in an Organized Health Care Education/Training Program
DX: J01.90 Acute sinusitis, unspecified (principal)
CPT/HCPCS: 70210

== ENCOUNTER → 2020-06-19 08:55 | Outpatient (CLI) | payer MEDICARE, MEDICAID, SELFPAY ==
[2020-06-19 09:27] LABS: COVID19 -Nasal RAPID Negative (Negative)
== END ==
PROVIDERS: PCP Student in an Organized Health Care Education/Training Program; Visit Provider Registered Nurse Diabetes Educator
DX: Z20.822 Contact with and (suspected) exposure to COVID-19 (principal)
CPT/HCPCS: 87635

== ENCOUNTER → 2020-10-14 09:47 | Outpatient (CLI) | payer MEDICARE, MEDICAID, SELFPAY | PROVIDERS: PCP Student in an Organized Health Care Education/Training Program; Referring Provider Student in an Organized Health Care Education/Training Program; Visit Provider Student in an Organized Health Care Education/Training Program | DX: Z78.0 Asymptomatic menopausal state (principal); M85.851 Other specified disorders of bone density and structure, right thigh; C81.90 Hodgkin lymphoma, unspecified, unspecified site; Z90.722 Acquired absence of ovaries, bilateral; Z82.62 Family history of osteoporosis; Z87.891 Personal history of nicotine dependence | CPT/HCPCS: 77080 ==

== ENCOUNTER → 2020-12-21 12:29 | Outpatient (CLI) | payer MEDICARE, MEDICAID, SELFPAY ==
[2020-12-21 13:02] LABS: COVID19 -Nasal RAPID Negative (Negative)
== END ==
PROVIDERS: PCP Student in an Organized Health Care Education/Training Program; Referring Provider Physician Assistant; Visit Provider Physician Assistant
DX: R59.9 Enlarged lymph nodes, unspecified (principal); Z20.822 Contact with and (suspected) exposure to COVID-19
CPT/HCPCS: 87070; 87635

== ENCOUNTER → 2020-12-23 14:52 | Outpatient (CLI) | payer MEDICARE, MEDICAID, SELFPAY ==
[2020-12-23 15:29] LABS: Hematocrit 43.9 % (36-46); Hemoglobin 14.9 g/dL (12.0-16.0); Mean Corpuscular HGB Conc 33.9 % (30-36); Mean Corpuscular Volume 91.4 fL (80-100); Platelet Count 169 X10^3/uL (150-400); Red Cell Distribution Width 13.8 % (11.6-14.8); White Blood Cell Count 5.4 X10^3/uL (4.5-11.0)
[2020-12-23 15:34] LABS: Add Manual Diff / Slide Review YES
[2020-12-23 15:41] LABS: Alanine Aminotransferase 22 IU/L (<35); Albumin Globulin Ratio 1.4 (1.0-2.8); Alkaline Phosphatase 68 U/L (38-126); Aspartate Aminotransferase 23 IU/L (14-36); Bilirubin Total 0.3 mg/dL (0.2-1.3); Blood Urea Nitrogen 14 mg/dL (7-17); Calcium 9.2 mg/dL (8.4-10.2); Carbon Dioxide 27 mmol/L (22-32); Chloride 108 mmol/L (98-107); Estimated Glomerular Filt Rate > 60.0 mL/min (>60); Globulin 2.9 g/dL (1.7-4.1); Glucose 104 mg/dL (70-100); HEMOLYSIS < 15 (0-50); Potassium 3.7 mmol/L (3.4-5.1); Sodium 143 mmol/L (137-145); Total Protein 6.9 g/dL (6.3-8.2)
[2020-12-23 15:51] LABS: Neutrophils Absolute Manual 3402 /uL (3000-5900); RBC Morphology Normal Morphology; Total Cells Counted 100
== END ==
PROVIDERS: PCP Student in an Organized Health Care Education/Training Program; Referring Provider Physician Assistant; Visit Provider Physician Assistant
DX: R59.0 Localized enlarged lymph nodes (principal)
CPT/HCPCS: 36415; 80053; 85007; 85025

== ENCOUNTER → 2021-05-13 09:32 | Outpatient (CLI) | payer MEDICARE, MEDICAID, SELFPAY ==
--- NOTE | 2021-05-13 09:32 | DI.MG.S_ITS ---
BILATERAL DIGITAL SCREENING MAMMOGRAM 3D/2D WITH CAD: 05/13/2021 CLINICAL: Routine screening. Comparison is made to exams dated: 09/18/2019 mammogram, 07/07/2018 mammogram, 07/16/2017 mammogram, and 06/25/2017 mammogram - [facility]. There are scattered fibroglandular elements in both breasts. Current study was also evaluated with a Computer Aided Detection (CAD) system. No significant masses, calcifications, or other findings are seen in either breast. There has been no significant interval change. IMPRESSION: NEGATIVE There is no mammographic evidence of malignancy. A 1 year screening mammogram is recommended. This exam was interpreted at Station ID: [id number]. NOTE: For mammograms, a report in lay terms will be sent to the patient. Approximately 15% of breast malignancies will not be visualized mammographically. In the management of a palpable breast mass, a negative mammogram must not discourage biopsy of a clinically suspicious lesion. Electronically Signed By: Bridgett bajwa/aggie:05/13/2021 11:58:12 letter sent: Normal Exam ACR BI-RADS Category 1: Negative [id number]
== END ==
PROVIDERS: PCP Student in an Organized Health Care Education/Training Program; Referring Provider Student in an Organized Health Care Education/Training Program; Visit Provider Student in an Organized Health Care Education/Training Program
DX: Z12.31 Encounter for screening mammogram for malignant neoplasm of breast (principal)
CPT/HCPCS: 77063; 77067

== ENCOUNTER → 2021-09-24 16:32 | Outpatient (CLI) | payer MEDICARE, MEDICAID, SELFPAY ==
--- NOTE | 2021-09-24 16:35 | DI.RAD.S_ITS ---
PROCEDURE: XR CHEST 2V INDICATIONS: cough TECHNIQUE: 2 views of the chest were acquired. COMPARISON: [facility], CR, XR CHEST 2V, 12/16/2017, 13:42. FINDINGS: Surgical changes and devices: None. Lungs and pleura: Minimal interstitial infiltrates can be seen involving the lower lungs. No pleural effusions or pneumothorax. Mediastinum: Mediastinal contours are normal. Heart size is normal. Bones and chest wall: No suspicious bony abnormalities. At least 1 remote left posterior rib fracture can be seen. Age-appropriate bony degenerative changes are seen. Soft tissues appear unremarkable. IMPRESSION: Minimal interstitial type infiltrates are seen involving the lower lungs. Please consider COVID pneumonia versus pulmonary edema. The heart size is normal. Dictated by: Jayro Grijalva M.D. on 09/24/2021 at 17:10 Approved by: Jayro Grijalva M.D. on 09/24/2021 at 17:11
== END ==
PROVIDERS: PCP Student in an Organized Health Care Education/Training Program; Referring Provider Nurse Practitioner Family; Visit Provider Nurse Practitioner Family
DX: R05.9 Cough, unspecified (principal)
CPT/HCPCS: 71046

== ENCOUNTER → 2021-12-10 14:40 | Outpatient (CLI) | payer MEDICARE, MEDICAID, SELFPAY ==
--- NOTE | 2021-12-10 14:41 | DI.CT.S_ITS ---
PROCEDURE: CT SOFT TISSUE NECK WO CON INDICATIONS: persistent cough for three months TECHNIQUE: Non-contrast 3.0 mm axial sections acquired from the sella to the aortic arch. Additional oblique axial 3.0 mm sections acquired through the pharynx. 3 mm thick coronal and sagittal reformats were generated. For radiation dose reduction, the following was used: automated exposure control. COMPARISON: None. FINDINGS: Image quality: Excellent. Lymph nodes: No enlarged lymph nodes seen throughout the neck. Vessels: Non-opacified vessels appear normal in caliber. Neck spaces: The oropharynx, nasopharynx, and pharynx demonstrate no mucosal lesions. The vocal cords, false vocal cords, pyriform sinuses, epiglottis, vallecula, and tongue base all appear normal. Extramucosal spaces appear unremarkable. Glands: The parotid and submandibular glands appear normal, without stones. Thyroid gland grossly normal. IMPRESSION: No significant abnormality in the next to explain chronic cough. Lung findings which are likely clinically significant are noted; please see separately dictated CT chest report for comprehensive description. Dictated by: Jared Millard M.D. on 12/10/2021 at 20:15 Approved by: Jared Millard M.D. on 12/16/2021 at 16:14
--- NOTE | 2021-12-10 14:41 | DI.CT.S_ITS ---
PROCEDURE: CT CHEST WO CON INDICATIONS: Persistent cough for 3 months TECHNIQUE: Noncontrast 5 mm thick sections acquired from the pulmonary apices to the posterior costophrenic angles. 1 mm lung window, 5 mm thick coronal and sagittal and 7 mm axial MIP reformats were then acquired. For radiation dose reduction, the following was used: automated exposure control, adjustment of mA and/or kV according to patient size. COMPARISON: [facility], CT, PE STUDY (CTA CHEST), 07/25/2015, 18:27. [facility], CR, XR CHEST 2V, 09/24/2021, 16:47. [facility], CT, CT SOFT TISSUE NECK WO CON, 12/10/2021, 14:45. FINDINGS: Image quality: Excellent. Lungs and pleura: Mild areas of patchy poorly defined opacity can be seen involving both lower lungs. No acute air space opacities. No suspicious pulmonary nodules are seen. Several calcified granulomas are seen. No pleural effusions or pneumothorax. Central and peripheral airways are patent and normal in caliber. Mild emphysematous changes are seen, with pulmonary cyst formation. Mediastinum: Heart size is normal. No pericardial effusion. No mediastinal adenopathy by size criteria. Calcified mediastinal lymph nodes are seen. Thoracic aorta and central pulmonary arteries are normal in size. An aberrant simply in artery is again seen. Esophagus is normal in caliber. No hiatal hernia. Bones and chest wall: No suspicious bony lesions. No vertebral body compression fractures. No axillary or supraclavicular adenopathy by size criteria. Thyroid gland demonstrates no significant noncontrast abnormality. Abdomen: Simple appearing liver cysts are seen. IMPRESSION: Mild areas of patchy poorly defined opacity can be seen involving both lower lungs. These are nonspecific, although chronic infection is suspected. Mild emphysematous changes are seen, with pulmonary cyst formation. 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 Dictated by: Jayro Grijalva M.D. on 12/10/2021 at 16:46 Approved by: Jayro Grijalva M.D. on 12/10/2021 at 16:49
== END ==
PROVIDERS: PCP Student in an Organized Health Care Education/Training Program; Referring Provider Student in an Organized Health Care Education/Training Program; Visit Provider Student in an Organized Health Care Education/Training Program
DX: R05.8 Other specified cough; K76.89 Other specified diseases of liver; J98.4 Other disorders of lung
CPT/HCPCS: 70490; 71250

== ENCOUNTER → 2022-02-18 07:50 | Outpatient (CLI) | payer MEDICARE, MEDICAID, SELFPAY ==
--- NOTE | 2022-02-18 | DI.ECHO.S_ITS ---
[facility] +---------+ : : [address] : : : : [id number] : : : : Phone: [phone]+ Echocardiogram Report + + :Name: JUICE DAI Study Date: 02/18/2022 Height: 65 in : :[facility] ReadingLocation: Weight: 155 lb : : Gender: Female BSA: 1.8 m2 : :: 1960 Age: 61 yrs BP: 119/86 mmHg: :Reason For Study: PERICARDITIS : :Ordering Physician: YANDY AVITIA Performed By: Kimberly King : :Referring: YANDY AVITIA : + + Interpretation Summary There is normal left ventricular wall thickness. The ejection fraction is estimated to be 50-55%. Previous LVEF 55 to 60%. There are no focal wall motion abnormalities. The right ventricle is normal in size and function. There is mild to moderate tricuspid regurgitation. Compared to the prior echo exam, there has been an increase in TR severity. The right ventricular systolic pressure is estimated to be at least 23 mmHg based on an estimated right atrial pressure of 3 mm Hg. There is no pericardial effusion. There is an anterior echo-free space consistent with a fat pad. Procedure: A two-dimensional transthoracic echocardiogram with color flow and Doppler was performed. The study quality was technically adequate. Comparison is made with the echocardiogram of 06/29/2019. The patient was in sinus rhythm with heart rates between 67-78 bpm during the exam. Left Ventricle: There is normal left ventricular wall thickness. There is no thrombus. The ejection fraction is estimated to be 50-55%. There are no focal wall motion abnormalities. Diastolic parameters suggest a relaxation abnormality of the left ventricle, consistent with probable normal filling pressures. Right Ventricle: The right ventricle is normal in size and function. Atria: The left atrial size is normal. There has been no significant change since the previous study. Right atrial size is normal. There is no Doppler evidence for an interatrial shunt. Mitral Valve: The mitral valve leaflets are mildly calcified. There is mild to moderate mitral annular calcification. No significant mitral valve stenosis. There is trace mitral regurgitation. Aortic Valve: The aortic valve is trileaflet. The aortic valve opens well. There is no aortic valve stenosis. There is trace aortic regurgitation. Tricuspid Valve: The tricuspid valve is normal. There is mild to moderate tricuspid regurgitation. The right ventricular systolic pressure is estimated to be at least 23 mmHg based on an estimated right atrial pressure of 3 mm Hg. Compared to the prior echo exam, there has been an increase in TR severity. Pulmonic Valve: The pulmonic valve is not well seen, but is grossly normal. There is mild pulmonic regurgitation. Great Vessels: The aortic root is normal size. The dimensions of the ascending aorta are normal. The IVC is of normal diameter and collapses greater than 50% with a sniff. This suggests a low right atrial pressure of 3 mm Hg. Pericardium/ Pleura There is no pericardial effusion. There is an anterior echo-free space consistent with a fat pad. There is no pleural effusion. MMode/2D Measurements & Calculations LVIDd: 4.3 cm LVOT diam: 2.0 cm LVIDs: 3.1 cm Ao root diam: 3.4 cm FS: 28.1 % asc Aorta Diam: 2.6 cm EPSS: 1.2 cm Ao Arch Diam (Prox Trans): 2.3 cm IVSd: 0.77 cm LVPWd: 0.67 cm LV dempsey. diameter/BSA (cm/m^2): 2.4 LV sys. diameter/BSA (cm/m^2): 1.8 LA A2 area: 14.4 cm2 RA long axis: 4.4 cm LA A4 area: 14.7 cm2 RA area: 13.2 cm2 LA length (vol): 4.9 cm RA vol: 33.4 ml LA vol: 36.7 ml RA : 18.8 ml/m2 LA vol index: 20.7 ml/m2 IVC diam: 1.4 cm RVD1 (basal): 3.0 cm RVD2 (mid): 2.4 cm TAPSE: 2.3 cm Doppler Measurements & Calculations Ao V2 max: 105.8 cm/sec LVOT Max Garrison: 66.4 cm/sec Ao V2 mean: 74.3 cm/sec LV V1 max P.8 mmHg Ao max P.5 mmHg LV V1 VTI: 14.0 cm Ao mean P.5 mmHg STEPH(I,D): 2.0 cm2 Ao V2 VTI: 22.1 cm STEPH(V,D): 2.0 cm2 sev ratio: 0.64 STEPH indexed to BSA (cm^2/m^2): 1.1 MV E max garrison: 62.1 cm/sec TR max garrison: 202.6 cm/sec MV A max garrison: 75.1 cm/sec TR max P.6 mmHg MV E/A: 0.83 PA V2 max: 70.8 cm/sec Med Peak E' Garrison: 5.8 cm/sec PA V2 mean: 51.6 cm/sec E/E' med: 10.6 PA mean P.2 mmHg Lat Peak E' Garrison: 8.5 cm/sec PA pr(Accel): 31.0 mmHg E/E' lat: 7.3 E/e' average: 9.0 MV dec time: 0.22 sec SV(LVOT): 43.8 ml Reading Physician:02:53 PM
--- NOTE | 2022-02-18 | DI.CT.S_ITS ---
PROCEDURE: CT CHEST ABD PEL W CON INDICATIONS: Acute nonspecific idiopathic pericarditis TECHNIQUE: After the administration of oral and intravenous contrast, axial sections acquired from the supraclavicular neck to the pubic symphysis. Coronal and sagittal reformats were performed. For radiation dose reduction, the following was used: automated exposure control, adjustment of mA and/or kV according to patient size. COMPARISON: [facility], CT, CT CHEST WO CON, 12/10/2021, 14:45. [facility], CT, CT KIDNEY URETER BLADDER (KUB), 12/07/2019, 20:22. FINDINGS: Image quality: Excellent. CHEST: Lower Neck: No enlarged lymph nodes. Thyroid: Unremarkable Axillae: No enlarged lymph nodes. Chest Wall: Unremarkable. Lungs and Airways: Apical scarring is redemonstrated. There is mild centrilobular emphysema with an apical predominance. There is mild peripheral interlobular septal thickening suggesting early fibrotic change. Scattered pneumatoceles are noted. 2 and 3 cm nodular radiopacities are redemonstrated at the lung bases. No focal airspace opacities. Pleura: No pneumothorax or pleural effusions. Heart: Heart size is normal. No pericardial effusion. Thoracic Vessels: The aorta and pulmonary arteries demonstrate normal size. There is an incidentally noted aberrant right subclavian artery. Scattered atheromatous calcifications are present at the thoracic aortic arch. Mediastinum and Renea: No enlarged lymph nodes. Esophagus: No wall thickening. No hiatal hernia. ABDOMEN: Liver: Unremarkable. Gallbladder: Unremarkable. Biliary ducts: Unremarkable. Pancreas: Unremarkable. Spleen: Unremarkable. Adrenal Glands: Unremarkable. Kidneys and Ureters: Unremarkable. Stomach and Bowel: Stomach, small bowel loops, and colon are unremarkable. The appendix is thin walled and gas filled. There are scattered sigmoid diverticula. No evidence for diverticulitis. Peritoneum: No abnormal intraperitoneal fluid. No free air. Ventral Wall: No hernia. Abdominal Nodes: No retroperitoneal or mesenteric adenopathy by size criteria. Vessels: Aorta and inferior vena cava are normal in size. PELVIS: Pelvic Organs: Unremarkable. Bladder: Unremarkable. Pelvic Nodes: No enlarged lymph nodes. Miscellaneous: No inguinal hernias are seen. Bones: Unremarkable. IMPRESSION: 1. Peripheral interlobular septal thickening and nodular radiopacities suggesting early pulmonary fibrosis. 2. No cardiomegaly or pericardial effusion. 3. No acute intra-abdominal findings. Normal appendix. Diverticulosis. No acute diverticulitis. Dictated by: Radha Olson M.D. on 02/18/2022 at 10:30 Approved by: Radha Olson M.D. on 02/18/2022 at 10:35
== END ==
PROVIDERS: PCP Student in an Organized Health Care Education/Training Program; Referring Provider Internal Medicine Pulmonary Disease; Visit Provider Internal Medicine Pulmonary Disease
DX: I30.0 Acute nonspecific idiopathic pericarditis (principal); I08.1 Rheumatic disorders of both mitral and tricuspid valves; J43.2 Centrilobular emphysema; R05.3 Chronic cough; K57.30 Diverticulosis of large intestine without perforation or abscess without bleeding; Z85.72 Personal history of non-Hodgkin lymphomas; Z85.71 Personal history of Hodgkin lymphoma
CPT/HCPCS: 71260; 74177; 93306; Q9967

== ENCOUNTER → 2022-02-26 08:53 | Outpatient (CLI) | payer MEDICARE, MEDICAID, SELFPAY ==
[2022-02-26 10:07] LABS: COVID19 -Nasal RAPID Negative (Negative)
== END ==
PROVIDERS: PCP Student in an Organized Health Care Education/Training Program; Referring Provider Internal Medicine; Visit Provider Internal Medicine
DX: Z20.822 Contact with and (suspected) exposure to COVID-19 (principal)
CPT/HCPCS: 87635; C9803

== ENCOUNTER → 2022-02-27 10:02 | Outpatient (CLI) | payer MEDICARE, MEDICAID, SELFPAY ==
--- NOTE | 2022-03-04 08:10 | PM.PFT.1 ---
Pulmonary Function Test Referral & Results Date Patient Seen: 02/27/22 Requesting provider: Dianne Maldonado Results: The spirometry demonstrates an FVC of 2.66 L which is 77% of predicted. The FEV1 was measured at 2.04 L which is 76% of predicted. The FEV1/FVC ratio was 77 which is 98% of predicted. Following the administration of bronchodilator there was a 21% improvement in FEF 25-75%. Lung volumes show an SVC of 2.82 L which is 88% of predicted. The diffusing capacity was measured at 17.39 which is 67% of predicted. No hemoglobin value was provided, so no correction for potential anemia could be made, if appropriate. The maximum voluntary ventilation was reduced Interpretation: This study demonstrates mild obstructive lung disease based on reduction FEV1 although FEV1/FVC ratio is preserved. There is some evidence of limited benefit following bronchodilator administration particularly small airway flow based on limited improvement in FEF 25-75% as above. There is also a [id number] reduction in diffusing capacity suggesting element of disease at the capillary alveolar level Compared to PFTs performed in January 2020, current study demonstrates reduction in FEV1 but improvement in lung volumes/SVC. Diffusing capacity is essentially unchanged Clinical correlation suggested
== END ==
PROVIDERS: PCP Student in an Organized Health Care Education/Training Program; Referring Provider Internal Medicine Pulmonary Disease; Visit Provider Internal Medicine Pulmonary Disease
DX: R05.3 Chronic cough (principal); Z87.891 Personal history of nicotine dependence; J98.8 Other specified respiratory disorders
CPT/HCPCS: 94060; 94726; 94729

== ENCOUNTER → 2022-05-26 08:37 | Outpatient (CLI) | payer MEDICARE, MEDICAID, SELFPAY ==
[2022-05-26 10:00] LABS: Cholesterol 171 mg/dL (140-199); HDL Cholesterol 35 mg/dL (40-60); LDL Cholesterol Calculated 125 mg/dL (<100); Triglycerides 57 mg/dL (35-150)
[2022-05-26 10:32] LABS: TSH w/ Reflex to FT4 1.27 uIU/mL (0.47-4.68)
[2022-05-26 10:50] LABS: Hep C Virus Ab w/Reflex Quant NEGATIVE s/c (NEGATIVE)
== END ==
PROVIDERS: PCP Student in an Organized Health Care Education/Training Program; Referring Provider Student in an Organized Health Care Education/Training Program; Visit Provider Student in an Organized Health Care Education/Training Program
DX: E03.9 Hypothyroidism, unspecified (principal); Z11.59 Encounter for screening for other viral diseases; Z13.220 Encounter for screening for lipoid disorders
CPT/HCPCS: 36415; 80061; 84443; 86803

== ENCOUNTER → 2022-09-16 11:25 | Outpatient (CLI) | payer MEDICARE, MEDICAID, SELFPAY ==
--- NOTE | 2022-09-16 11:27 | DI.RAD.S_ITS ---
PROCEDURE: XR CHEST 2V INDICATIONS: eval ongoing productive cough TECHNIQUE: 2 views of the chest were acquired. COMPARISON: [facility], CT, CT CHEST ABD PEL W CON, 02/18/2022, 9:30. [facility], CR, XR CHEST 2V, 09/24/2021, 16:47. [facility], CR, XR CHEST 2V, 12/16/2017, 13:42. FINDINGS: Surgical changes and devices: None. Lungs and pleura: 1.5 centimeter nodularity projecting over the right lower lung zone. Peribronchial cuffing. Mediastinum: Mediastinal contours are normal. Heart size is normal. Bones and chest wall: No suspicious bony abnormalities. Soft tissues appear unremarkable. IMPRESSION: Peribronchial cuffing, typically indicating infectious or inflammatory bronchitis. 1.5 centimeter nodularity projecting over the right lower lung zone. Findings could represent superimposed shadows versus true nodule. No corresponding finding on comparison CT. Consider CT without contrast for confirmation. Dictated by: Louis Bales M.D. on 09/16/2022 at 15:06 Approved by: Louis Bales M.D. on 09/16/2022 at 16:00
[2022-09-16 13:06] LABS: Add Manual Diff / Slide Review NO; Basophils Absolute Auto 0 /uL (0-100); Basophils Percent Auto 0.4 % (0-2); Eosinophils Absolute Auto 100 /uL (0-450); Eosinophils Percent Auto 1.6 % (2-4); Hemoglobin 14.7 g/dL (12.0-16.0); Lymphocytes Absolute Auto 1600 /uL (1100-4500); Mean Corpuscular HGB Conc 33.4 % (30-36); Mean Corpuscular Hemoglobin 30.6 PG (26-34); Mean Corpuscular Volume 91.5 fL (80-100); Monocytes Absolute Auto 400 /uL (0-900); Monocytes Percent Auto 6.1 % (3-14); Neutrophils Absolute Auto 5000 /uL (1500-7000); Neutrophils Percent Auto 69.9 % (50-75); Platelet Count 199 X10^3/uL (150-400); Red Blood Cell Count 4.81 X10^6/uL (4.0-5.2); Red Cell Distribution Width 13.9 % (11.6-14.8); White Blood Cell Count 7.2 X10^3/uL (4.5-11.0)
== END ==
PROVIDERS: PCP Pediatrics; Referring Provider Pediatrics; Visit Provider Pediatrics
DX: J01.91 Acute recurrent sinusitis, unspecified (principal); J30.89 Other allergic rhinitis; R05.8 Other specified cough
CPT/HCPCS: 36415; 71046; 85025

== ENCOUNTER → 2022-09-19 10:43 | Outpatient (CLI) | payer MEDICARE, MEDICAID, SELFPAY ==
--- NOTE | 2022-09-19 10:45 | DI.CT.S_ITS ---
PROCEDURE: CT CHEST WO CON INDICATIONS: Abnormal chest xray TECHNIQUE: Noncontrast 5 mm thick sections acquired from the pulmonary apices to the posterior costophrenic angles. 1 mm lung window, 5 mm thick coronal and sagittal and 7 mm axial MIP reformats were then acquired. For radiation dose reduction, the following was used: automated exposure control, adjustment of mA and/or kV according to patient size. COMPARISON: [facility], CT, CT CHEST ABD PEL W CON, 02/18/2022, 9:30. [facility], CR, XR CHEST 2V, 09/16/2022, 11:44. [facility], CT, CT CHEST WO CON, 12/10/2021, 14:45. FINDINGS: Image quality: Excellent. Lungs and pleura: Mild emphysematous changes noted in both lungs with chronic interstitial changes. Peripheral right lower lobe 4.6 mm nodule remains unchanged. Multifocal ground-glass opacities in both lung bases are also similar. Mediastinum: Heart size is normal. No pericardial effusion. No mediastinal adenopathy by size criteria. Thoracic aorta and central pulmonary arteries are normal in size. Esophagus is normal in caliber. No hiatal hernia. Bones and chest wall: No suspicious bony lesions. No vertebral body compression fractures. No axillary or supraclavicular adenopathy by size criteria. Thyroid gland unremarkable . Abdomen: Visualized upper abdominal solid organs and bowel loops appear normal in the absence of contrast. IMPRESSION: Stable CT of the chest. Emphysematous and chronic interstitial findings are stable. Peripheral right lower lobe 4.5 mm nodule also stable Approved by: Donaldo Eduardo M.D. on 09/19/2022 at 14:05
== END ==
PROVIDERS: PCP Pediatrics; Referring Provider Pediatrics; Visit Provider Pediatrics
DX: R93.89 Abnormal findings on diagnostic imaging of other specified body structures (principal); R91.1 Solitary pulmonary nodule
CPT/HCPCS: 71250

== ENCOUNTER → 2022-10-15 | Outpatient (CLI) | payer MEDICARE, MEDICAID, SELFPAY ==
--- NOTE | 2022-10-15 10:04 | DI.RAD.S_ITS ---
Bone Density Report Name: JUICE DAI Age: 62 Sex: Female Ethnicity: White Date of : 1960 Indication: osteopenia; Referring Provider: JHON SIDDIQUI Study: Bone densitometry was performed. Exam Date: October 15, 2022 Accession number: [id number] Bone Density: Region BMD T-score Z-score Classification AP Spine(L1-L4) 0.802 -2.2 -0.8 Osteopenia Femoral Neck (Left) 0.574 -2.5 -1.2 Osteoporosis Total Hip (Left) 0.691 -2.1 -1.1 Osteopenia Femoral Neck (Right) 0.541 -2.8 -1.5 Osteoporosis Total Hip (Right) 0.713 -1.9 -0.9 Osteopenia Total Hip Mean 0.702 -2.0 -1.0 Osteopenia World Health Organization criteria for BMD impression classify patients as: Normal (T-score at or above -1.0), Osteopenia (T-score between -1.0 and -2.5), or Osteoporosis (T-score at or below -2.5). 10-year Fracture Risk: FRAX not reported because: Some T-score for Spine Total or Hip Total or Femoral Neck at or below -2.5 Previous Exams: -- Region Exam Age BMD T-score BMD Change BMD Change Date g/cm2 vs Baseline vs Previous -- AP Spine (L1-L4) 10/15/2022 62 0.802 -2.2 -0.101 (-11.1%)# -0.101 (-11.1%)# 10/14/2020 60 0.903 -1.3 Total Hip(Left) 10/15/2022 62 0.691 -2.1 -0.019 (-2.6%)# -0.019 (-2.6%)# 10/14/2020 60 0.710 -1.9 Total Hip(Right) 10/15/2022 62 0.713 -1.9 -0.005 (-0.7%)# -0.005 (-0.7%)# 10/14/2020 60 0.718 -1.8 -- *Denotes significance at 95% confidence level, LSC for AP Spine = 0.022 g/cm2, LSC for Total Hip = 0.027 g/cm2 # Denotes dissimilar scan types or analysis methods Impression: The patient has osteoporosis, based on the Right Femoral Neck T-score. No significant bone loss was observed. Discussion: INCREASED RISK OF FRACTURE. BONE DENSITY IS UNDESIRABLY LOW AT ONE OR MORE SKELETAL SITES, CONSISTENT WITH POSTMENOPAUSAL OSTEOPOROSIS. This patient's lowest T-score meets the World Health Organization's (WHO) criteria for osteoporosis at one or more sites (T-score -2.5 or below). In untreated patients, the risk of osteoporotic fracture increases approximately two-fold for each 1.0 SD decrease in T-score. Low bone density is not the only risk factor for fracture; also consider factors such as patient's age, frailty or poor health, risk of falling, risk of injury, previous osteoporotic fracture, family history of osteoporosis, cigarette smoking, low body weight, etc. Not everyone with low bone mineral density has osteoporosis; osteomalacia and other metabolic bone disorders should also be considered. Patients who have osteoporosis should be evaluated for specific diseases and conditions (secondary causes) that may cause or contribute to bone loss. The [place] [employer]ocrin[employer] (AACE) and National Osteoporosis Foundation (NOF) recommend pharmacologic intervention for all postmenopausal women whose T-score is in this range. The patient should follow a healthful lifestyle (good nutrition with adequate calcium and vitamin D, and appropriate weight-bearing exercise). Follow-Up: Consider a repeat BMD and Vertebral Fracture Assessment (VFA) exam in 2 years or sooner if medically necessary, to reassess this patient's status. Reported by: IMAN PARISI MD on 10/15/2022 10:30:00 AM.
== END ==
LOC: RAD 10:03
PROVIDERS: PCP Pediatrics; Referring Provider Pediatrics; Visit Provider Pediatrics
DX: M81.0 Age-related osteoporosis without current pathological fracture (principal); M06.9 Rheumatoid arthritis, unspecified; C81.90 Hodgkin lymphoma, unspecified, unspecified site; C85.90 Non-Hodgkin lymphoma, unspecified, unspecified site; Z79.83 Long term (current) use of bisphosphonates; Z92.23 Personal history of estrogen therapy; Z90.710 Acquired absence of both cervix and uterus
CPT/HCPCS: 77080

== ENCOUNTER → 2023-01-07 06:49 | Outpatient (CLI) | payer MEDICARE, MEDICAID, SELFPAY ==
[2023-01-07 09:19] LABS: Creatinine Urine Random 87.9 mg/dL; Microalbumin Urine Random < 0.6 mg/dL (0-1.6)
== END ==
PROVIDERS: PCP Family Medicine; Referring Provider Family Medicine; Visit Provider Family Medicine
DX: I10 Essential (primary) hypertension (principal)
CPT/HCPCS: 82043; 82570

== ENCOUNTER 2023-01-07 07:16 | Emergency (ER) | payer MEDICARE, MEDICAID, SELFPAY ==
[2023-01-07 07:20] VITALS: BP 127/71; PULSE 80; RESP 16; TEMP 36.6; O2SAT 97; BMI 25.0
--- NOTE | 2023-01-07 07:36 | ED.SKABFB ---
HPI - Skin/Abscess/Foreign Bdy General Chief complaint: Skin/Abscess/Foreign Body Stated complaint: BACK PAIN, BOIL DOWN BELOW Time Seen by Provider: 01/07/23 07:22 Source: patient Mode of arrival: Ambulatory Limitations: no limitations History of Present Illness HPI narrative: Patient is a 62-year-old female who is here for evaluation of which she initially states is a boil in her upper thigh/buttock region. She states that this is something that has been there off and on for many years. Current symptoms have been there for the past several days. It has grown somewhat large. Tender to palpation. She is never had it addressed in the past. She is unsure in the past whether or not it has ruptured and gone away or whether it has just gone away on its own. She is also complaining very small bowel movements. She states that it is hard and seems to be coming out like ?dorothy? she also is having some abdominal bloating and some lower back pain. She was concerned that maybe she has a kidney infection because of her back pain. She is had a urinary tract infection in the past without any specific symptoms. She is tried to increase her fiber and fluids but no other laxatives. Related Data Home Medications Medication Instructions Recorded Confirmed prazosin 1 mg capsule 1 mg PO QPM 05/26/22 12/11/22 Previous Rx's Medication Instructions Recorded [medical marijuana] #1 ea 10/01/16 [medical marijuana] #1 ea 10/01/16 alprazolam 0.5 mg tablet 0.5 mg PO BID PRN anxiety #45 tabs 01/05/20 fluticasone propionate 50 1 spray intranasal BID #16 grams 10/28/21 mcg/actuation nasal spray,suspension (Flonase Allergy Relief) ipratropium bromide 42 mcg (0.06 2 spray intranasal TID #15 mL 05/26/22 %) nasal spray levothyroxine 88 mcg tablet 88 mcg PO QAM #90 tabs 05/26/22 cetirizine 10 mg tablet 10 mg PO DAILY #90 tabs 06/10/22 montelukast 10 mg tablet 10 mg PO DAILY #90 tabs 09/02/22 DISABLED PARKING PERMIT #1 ea 09/24/22 Vivelle-Dot 0.05 mg/24 hr 1 patch transdermal 2XW #24 ea 12/11/22 transdermal patch (estradiol) Allergies Allergy/AdvReac Type Severity Reaction Status Date / Time butalbital [From Fioricet] Allergy Unknown Verified 12/11/22 14:29 erythromycin base Allergy Unknown GI UPSET Verified 12/11/22 14:29 [ERYTHROMYCIN BASE] SEVERE methocarbamol [METHOCARBAMOL] Allergy Unknown Verified 12/11/22 14:29 oxycodone [From PERCOCET] Allergy Unknown HIVES Verified 12/11/22 14:31 adhesive tape AdvReac Intermediate Tears skin Verified 12/11/22 14:29 and reactive rashes amoxicillin [AMOXICILLIN] AdvReac Intermediate GI upset Verified 12/11/22 14:29 doxycycline AdvReac Intermediate GI upset Verified 12/11/22 14:29 Review of Systems Constitutional Constitutional: Reports system reviewed and no additional complaints, except as documented Gastrointestinal Gastrointestinal: Reports system reviewed and no additional complaints, except as documented Genitourinary Genitourinary: Reports system reviewed and no additional complaints, except as documented Musculoskeletal Musculoskeletal: Reports system reviewed and no additional complaints, except as documented Integumentary/Breasts Skin/Breast: Reports system reviewed and no additional complaints, except as documented Patient History Medical History Abnormal CT scan, chest Sinusitis, acute Moderate mixed hyperlipidemia not requiring statin therapy GERD (gastroesophageal reflux disease) (Unknown) Anxiety (Unknown) Osteopenia (10/2015) Osteoporosis (10/2015) Viral pericarditis (06/2015) Vertigo (Unknown) Recurrent sinusitis (Unknown) Painful menstrual periods (Unknown) Ovarian cyst (Unknown) Herpes (Unknown) Abnormal Pap smear of cervix (~1982) Hypothyroidism (~2013) Hemorrhoids (Unknown) Skin cancer (~1997) Lymphoma (1995) Surgical History Status post hysterectomy Social History Smoking Status: Former smoker alcohol intake: never substance use type: marijuana Smoking Status: Former smoker alcohol intake frequency: holidays/special occasions only Substance Use Type: marijuana Exam Initial Vital Signs Initial Vital Signs: Vital Signs Temperature 97.9 F 01/07/23 07:20 Pulse Rate 80 01/07/23 07:20 Respiratory Rate 16 01/07/23 07:20 Blood Pressure 127/71 01/07/23 07:20 Pulse Oximetry 97 01/07/23 07:20 Oxygen Delivery Method Room Air 01/07/23 07:20 [facility] Head: normal to inspection and normocephalic GI Inspection: normal to inspection and non-distended Palpation: soft, No firm, No guarding and No tender Auscultation: normal bowel sounds Skin Other: Patient has at most a 1 cm x 1 cm area of induration on the left upper posterior thigh where the thigh would meet the lower buttocks. There is no surrounding erythema. There are no pustules. No vesicles. It is somewhat tender to palpation. There is no drainage. Very no deficits in the skin. No ulcerations. Course Vital Signs Vital signs: Vital Signs - 8 hr 01/07/23 07:20 Temperature 97.9 F Pulse Rate 80 Respiratory Rate 16 Blood Pressure 127/71 Pulse Oximetry 97 Oxygen Delivery Method Room Air MDM - Skin/Abscess/Foreign Bdy Lab Data Attestation: I reviewed the patient's lab results. Labs: Urine Dip Bedside Urine Glucose Negative Bedside Urine Bilirubin - Negative Bedside Urine Ketone - Negative Urine Specific [place] 1.005 Bedside Urine Occult Blood - Negative Bedside Urine pH 6.0 Bedside Urine Protein - Negative Bedside Urine Urobilinogen - Negative Bedside Urine Nitrite - Negative Bedside Urine Leukocytes - Negative Esterase MDM Narrative Medical decision making narrative: Her abdomen is soft. Not distended. No tenderness. Good bowel sounds. What she describes is having small bowel movements is most consistent with constipation. She is not having any vomiting. No nausea. She is still passing flatus. I have low concern for small bowel obstruction. No indication for radiologic studies. We had a long discussion about medications that she can use for improvement of her bowel regimen. Urinalysis shows no signs of infection. The ?boil? area of concern on her left upper inner thigh is most consistent with a cyst. The presentation today has very little that would make me think that it is an abscess. Given her history as well stating that this area has come and gone in the same place over the past 14 years is most consistent with a cyst. She actually states that it was much larger last evening than what it is today. There was no signs that there was any drainage from the area. We did discuss potentially doing an incision and drainage. This would confirm that this is a cyst and not an abscess we also discussed not doing that and letting it take its course which apparently it has improved in the past. She would opt to not do any incision today. I will give her the phone number for General surgery so that she can follow-up for further evaluation and potentially have the cyst removed. She was given return precautions. Discharge Plan Departure Patient Disposition: Home Clinical Impression: Constipation, Cyst of skin Instructions: DI for Constipation Activity Restrictions/Additional Instructions: I do recommend that you start taking a laxative such as MiraLax like we discussed. If you start to have fevers or abdominal pain or vomiting please return to the emergency department. If the area on your left upper thigh worsens or becomes more painful or larger or becomes red please return to the emergency department for further evaluation. Prescriptions: No Action alprazolam 0.5 mg tablet 0.5 mg PO BID PRN (Reason: anxiety) Qty: 45 5RF Hold Instructions: Change to daily #10 with next refill fluticasone propionate [Flonase Allergy Relief] 50 mcg/actuation spray,suspension 1 spray intranasal BID Qty: 16 3RF Rx Instructions: administer into each nostril cetirizine 10 mg tablet 10 mg PO DAILY Qty: 90 3RF (DME) [medical marijuana] See Rx Instructions .Route .MEDSUPPLY Qty: 1 0RF Rx Instructions: As directed (DME) [medical marijuana] See Rx Instructions .Route .MEDSUPPLY Qty: 1 0RF Rx Instructions: As directed montelukast 10 mg tablet 10 mg PO DAILY Qty: 90 1RF prazosin 1 mg capsule 1 mg PO QPM levothyroxine 88 mcg tablet 88 mcg PO QAM Qty: 90 3RF ipratropium bromide 42 mcg (0.06 %) spray,non-aerosol 2 spray intranasal TID Qty: 15 11RF Rx Instructions: administer into each nostril estradiol [Vivelle-Dot] 0.05 mg/24 hr patch semiweekly 1 patch Transdermal 2XW Qty: 24 3RF (DME) DISABLED PARKING PERMIT See Rx Instructions .ROUTE .MEDSUPPLY Qty: 1 0RF Rx Instructions: I FIND THIS PATIENT TO BE MEDICALLY DISABLED AND QUALIFIED FOR DISABLE PARKING INDICATED, AND SIGNED ON THE ACCOMPANYING [employer] APPLICATION FOR INDIVIDUALS Referrals: Jay Sumner MD [Physician] - Lizzy Yoder DO [Primary Care Provider] - Stand Alone Forms: Patient Portal/API
[2023-01-07 08:01] VITALS: BP 126/68; PULSE 76; RESP 18; O2SAT 97
== END 2023-01-07 08:00 | disposition home or self-care (01) ==
PROVIDERS: Emergency Provider Emergency Medicine; PCP Family Medicine
DX: K59.00 Constipation, unspecified (principal); L72.9 Follicular cyst of the skin and subcutaneous tissue, unspecified; I10 Essential (primary) hypertension
CPT/HCPCS: 81003; 82043; 82570; 99282

== ENCOUNTER → 2023-02-01 10:21 | Outpatient (CLI) | payer MEDICARE, MEDICAID, SELFPAY ==
--- NOTE | 2023-02-01 | DI.CT.S_ITS ---
PROCEDURE: CT CHEST WO CON INDICATIONS: Pneumonia TECHNIQUE: Noncontrast 2.0-2.5 mm thick sections acquired from the pulmonary apices to the posterior costophrenic angles. 7 mm thick axial MIP and 5 mm coronal and sagittal reformats were then acquired. For radiation dose reduction, the following was used: automated exposure control, adjustment of mA and/or kV according to patient size. COMPARISON: [facility], CT, CT CHEST WO CON, 09/19/2022, 10:55. FINDINGS: Image quality: Diagnostic, given the low radiation dose technique. Lungs and pleura: Stable 4 mm peripheral inferior right upper lobe pulmonary nodule, current image 117/3. No new or increasing pulmonary nodules. Multiple ill-defined peripheral nodular interstitial densities bilaterally are stable. These likely represent evidence of a chronic inflammatory or infectious process. For instance, check current image 175/3 in the right lower lobe. There are mild emphysematous changes, as well as mild changes of chronic interstitial pulmonary fibrosis. A 4 mm lingula pulmonary nodule is stable, present on current image 210/3 and previous image 226/3. Mediastinum: Heart size is normal. No pericardial effusion. No mediastinal adenopathy by size criteria. Calcified mediastinal nodes suggest chronic granulomatous disease. Thoracic aorta and central pulmonary arteries are normal in size. Esophagus is normal in caliber. No hiatal hernia. Bones and chest wall: No suspicious bony lesions. No vertebral body compression fractures. No axillary or supraclavicular adenopathy by size criteria. No thyroid nodules which require sonographic follow up, per consensus guidelines. Upper Abdomen: Visualized upper abdomen solid organs and bowel loops appear normal in the absence of contrast. IMPRESSION: 1. Stable small pulmonary nodules. 2. Mild emphysematous change and mild chronic interstitial pulmonary fibrosis. 3. Ill-defined reticular nodule process bilaterally suggest chronic inflammation or chronic infection. Comment: Recommend repeat chest CT in 12 months. Fleischner Society criteria for SOLID lung nodule followup. Nodule size (mm)Low-risk patientHigh-risk patient<6 (single or multiple)No routine followup.Optional CT at 12 months. 6-8 (single or multiple)CT at 6-12 months, then optional CT at 18-24 mo.CT at 6-12 months, then CT at 18-24 months. >8 (single)CT at 3 months, PET-CT, or biopsy. Same as for low-risk pts. >8 (multiple)CT at 3-6 months, then optional CT at 18-24 mo.CT at 3-6 months, then CT at 18-24 months. Fleischner Society criteria for SUB-SOLID lung nodule followup. Solitary pure ground-glass nodules<6 mm (ground glass or part solid)No followup needed. 6 mm or larger (ground glass)CT at 6-12 months to confirm persistence, then CT every 2 years until 5 years.6 mm or larger (part solid)CT at 3-6 months to confirm persistence, then annual CT until 5 years if unchanged and solid component remains <6 mm. Multiple sub-solid nodules<6 mmCT at 3-6 months, then CT consider at 2 & 4 years for high risk patients. [address] at 3-6 months. Subsequent management based on most suspicious lesions. Recommendations do not apply to lung cancer screening, patients with immunosuppression, or patients with known primary cancer. Dictated by: Errol Carrington M.D. on 02/01/2023 at 14:14 Approved by: Errol Carrington M.D. on 02/01/2023 at 14:21
== END ==
LOC: CT 10:22
PROVIDERS: PCP Family Medicine; Referring Provider Internal Medicine Pulmonary Disease; Visit Provider Internal Medicine Pulmonary Disease
DX: J18.9 Pneumonia, unspecified organism (principal); J84.10 Pulmonary fibrosis, unspecified; R91.8 Other nonspecific abnormal finding of lung field
CPT/HCPCS: 71250

== ENCOUNTER → 2023-09-27 08:02 | Outpatient (CLI) | payer MEDICARE, MEDICAID, SELFPAY ==
--- NOTE | 2023-09-27 08:04 | DI.MG.S_ITS ---
BILATERAL DIGITAL SCREENING MAMMOGRAM 3D/2D WITH CAD: 09/27/2023 CLINICAL: Routine screening. Comparison is made to exams dated: 05/13/2021 mammogram, 09/18/2019 mammogram, and 07/07/2018 mammogram - [facility]. There are scattered areas of fibroglandular density in both breasts (category b / 25%-50% glandular tissue). Current study was also evaluated with a Computer Aided Detection (CAD) system. No significant masses, calcifications, or other findings are seen in either breast. There has been no significant interval change. IMPRESSION: NEGATIVE There is no mammographic evidence of malignancy. A 1 year screening mammogram is recommended. Based on the Tyrer Cuzick model (a risk assessment model) the patient's lifetime risk is 4.0% and her 10 year risk is 1.6%. According to the ACR, ACS, and NCCN guidelines, an annual breast MRI exam along with mammogram is recommended if the patient's lifetime risk is 20% or greater. This exam was interpreted at Station ID: [id number]. NOTE: For mammograms, a report in lay terms will be sent to the patient. Approximately 15% of breast malignancies will not be visualized mammographically. In the management of a palpable breast mass, a negative mammogram must not discourage biopsy of a clinically suspicious lesion. Electronically Signed By: Ismael ornelas/aggie:09/27/2023 13:36:25 letter sent: Normal Exam ACR BI-RADS Category 1: Negative [id number]
== END ==
LOC: MAMMO 08:03
PROVIDERS: PCP Family Medicine; Referring Provider Family Medicine; Visit Provider Family Medicine
DX: Z12.31 Encounter for screening mammogram for malignant neoplasm of breast (principal); R92.323 Mammographic fibroglandular density, bilateral breasts
CPT/HCPCS: 77063; 77067

== ENCOUNTER → 2023-10-20 09:18 | Outpatient (CLI) | payer MEDICARE, MEDICAID, SELFPAY ==
--- NOTE | 2023-10-20 09:20 | DI.RAD.S_ITS ---
PROCEDURE: XR CHEST 2V INDICATIONS: Acute cough TECHNIQUE: 2 views of the chest were acquired. COMPARISON: [facility], CR, XR CHEST 2V, 09/16/2022, 11:44. FINDINGS: Surgical changes and devices: None. Lungs and pleura: Lungs are clear. No pleural effusions or pneumothorax. Mediastinum: Mediastinal contours are normal. Heart size is normal. Bones and chest wall: No suspicious bony abnormalities. Soft tissues appear unremarkable. IMPRESSION: No acute cardiopulmonary abnormalities or focal consolidation. Dictated by: Manuel Del Valle M.D. on 10/20/2023 at 15:40 Approved by: Manuel Del Valle M.D. on 10/20/2023 at 15:40
== END ==
PROVIDERS: PCP Family Medicine; Referring Provider Family Medicine; Visit Provider Family Medicine
DX: R05.1 Acute cough (principal)
CPT/HCPCS: 71046

== ENCOUNTER → 2023-11-26 06:18 | Outpatient (CLI) | payer MEDICARE, MEDICAID, SELFPAY ==
--- NOTE | 2023-11-26 06:20 | DI.CT.S_ITS ---
PROCEDURE: CT CHEST WO CON INDICATIONS: ABNORMAL CHEST CT / LUNG NODULES TECHNIQUE: Noncontrast 5 mm thick sections acquired from the pulmonary apices to the posterior costophrenic angles. 1 mm lung window, 5 mm thick coronal and sagittal and 7 mm axial MIP reformats were then acquired. For radiation dose reduction, the following was used: automated exposure control, adjustment of mA and/or kV according to patient size. COMPARISON: [facility], CT, CT CHEST WO CON, 02/01/2023, 10:28. FINDINGS: Image quality: Diagnostic. Lower Neck: No enlarged lymph nodes. Thyroid: No thyroid nodules which require sonographic follow up, per consensus guidelines. Axillae: No enlarged lymph nodes. Chest Wall: Unremarkable. Bones: No suspicious osseous lesion. Prior left-sided rib fracture Lungs and Pleura: No pneumothorax or pleural effusions. No acute airspace opacity. Similar mild reticular opacity. A few pulmonary cysts. A few pulmonary nodules measuring 0.4 cm or less. For example: -Right lower lobe juxta fissural 0.4 cm, (3/41), unchanged. -Left upper lobe juxta fissural 0.4 cm, (3/69), unchanged. No new or enlarging pulmonary nodules. Heart: Heart size is normal. No pericardial effusion. Thoracic Vessels: The aorta and pulmonary arteries demonstrate normal size. Retroesophageal right subclavian artery, variant. Mediastinum and Renea: No enlarged lymph nodes. Esophagus: No wall thickening. No hiatal hernia. Upper Abdomen: Small hypodensities in the liver are unchanged. Likely benign cysts or hemangiomas. IMPRESSION: 1. No new or enlarging pulmonary nodules. A few pulmonary nodules measuring 0.4 cm or less. 2. No enlarged lymph nodes. 3. No acute airspace opacity. Mild background of reticular opacity is unchanged. Dictated by: Theo Chapman M.D. on 11/26/2023 at 12:28 Approved by: Theo Chapman M.D. on 11/26/2023 at 12:38
== END ==
PROVIDERS: PCP Family Medicine; Referring Provider Internal Medicine Pulmonary Disease; Visit Provider Internal Medicine Pulmonary Disease
DX: R93.89 Abnormal findings on diagnostic imaging of other specified body structures (principal); R91.8 Other nonspecific abnormal finding of lung field
CPT/HCPCS: 71250

== ENCOUNTER 2024-03-28 08:53 | Day surgery (SDC) | payer MEDICARE, MEDICAID, SELFPAY ==
--- NOTE | 2024-03-28 | PATH_ITS ---
[facility] Accession Number: [id number] No. of containers..01 Tissue . 01 Material submitted: . rectum - RECTAL POLYP X 2 . 01 Diagnosis: RECTAL POLYP X 2: 1. Hyperplastic polyp. 2. Condyloma acuminatum. No high-grade dysplasia or malignancy identified. [facility] 03/30/2024 1630 Local . 01 Electronically signed: . Catrachito Payan MD, Pathologist NPI- [id number] . 01 Gross description: . Received in formalin with two patient identifiers and 1. Rectal polyp x2, are three nicolas soft tissue fragments 0.9 to 0.4 cm in greatest dimension. Submitted in cassette A1. ([id number]) /[place] 03/30/2024 1630 Local . 01 Pathologist provided ICD-10: A63.0, K62.1 . 01 CPT . 431949 Specimen Comment: A courtesy copy of this report has been sent to [facility] Performed at: [address] [address], [place], [place] [id number] MD Catrachito Payan MD Phone: [phone]
[2024-03-28 10:31] VITALS: BP 121/74; PULSE 86; RESP 12; TEMP 36.1; O2SAT 98
--- NOTE | 2024-03-28 11:27 | P.HP_ITS ---
History of Present Illness History of Present Illness Date Patient Seen: 03/28/24 Time Patient Seen: 11:27 Chief complaint: Colonoscopy Narrative: 63-year-old white female, 10 years since her previous colonoscopy. She recalls that there were polyps removed on colonoscopy but does not recall what follow-up interval she was instructed to follow. No changes in health. [facility] Medical History PTSD (post-traumatic stress disorder) Abnormal CT scan, chest Sinusitis, acute Moderate mixed hyperlipidemia not requiring statin therapy GERD (gastroesophageal reflux disease) (Unknown) Anxiety (Unknown) Osteopenia (10/2015) Osteoporosis (10/2015) Viral pericarditis (06/2015) Vertigo (Unknown) Recurrent sinusitis (Unknown) Painful menstrual periods (Unknown) Ovarian cyst (Unknown) Herpes (Unknown) Abnormal Pap smear of cervix (~1982) Hypothyroidism (~2013) Hemorrhoids (Unknown) Skin cancer (~1997) Lymphoma (1995) Surgical History Status post hysterectomy Social History Smoking Status: Current every day smoker alcohol intake: current substance use type: marijuana Meds Home Medications and Allergies Home Medications Medication Instructions Recorded Confirmed Type [medical marijuana] #1 ea 10/01/16 03/26/23 Rx [medical marijuana] #1 ea 10/01/16 03/26/23 Rx DISABLED PARKING PERMIT #1 ea 09/24/22 03/26/23 Rx cyanocobalamin (vitamin B-12) 1,000 mcg IM 2XW #1 mL 01/18/23 03/26/23 Rx 1,000 mcg/mL injection solution clindamycin phosphate 1 % lotion topical 02/04/23 03/26/23 History montelukast 10 mg tablet 10 mg PO DAILY #90 tabs 02/24/23 03/26/23 Rx prazosin 1 mg capsule 1 mg PO BEDTIME #30 caps 04/23/23 01/25/24 Rx Vivelle-Dot 0.05 mg/24 hr 1 patch transdermal 2XW #24 ea 06/09/23 03/28/24 Rx transdermal patch (estradiol) albuterol sulfate 90 mcg/actuation 2 puff inhalation Q6H PRN 07/20/23 07/20/23 Rx aerosol inhaler shortness of breath or wheezing #8.5 grams benzonatate 200 mg capsule 200 mg PO BID PRN cough #30 caps 07/20/23 07/20/23 Rx inhalational spacing device #1 ea 07/20/23 07/20/23 Rx (Aerochamber MV spacer) cetirizine 10 mg tablet 10 mg PO DAILY #90 tabs 07/21/23 Rx fluticasone propionate 50 1 spray intranasal BID #16 grams 07/21/23 03/28/24 Rx mcg/actuation nasal spray,suspension (Flonase Allergy Relief) ipratropium bromide 42 mcg (0.06 2 spray intranasal TID #15 mL 07/21/23 Rx %) nasal spray levothyroxine 88 mcg tablet 88 mcg PO QAM #90 tabs 09/14/23 03/28/24 Rx sertraline 50 mg tablet 50 mg PO DAILY #30 tabs 01/25/24 03/28/24 Rx sodium,potassium,mag sulfates 17.5 See Rx Instructions PO .COMPLEX 02/21/24 Rx gram-3.13 gram-1.6 gram oral soln #354 mL (Suprep Bowel Prep Kit) Allergies Allergy/AdvReac Type Severity Reaction Status Date / Time minocycline Allergy Severe Stomach Verified 03/28/24 10:28 Upset/Guts inflammed. butalbital [From Fioricet] Allergy Unknown Verified 03/28/24 10:28 erythromycin base Allergy Unknown GI UPSET Verified 03/28/24 10:28 [ERYTHROMYCIN BASE] SEVERE methocarbamol [METHOCARBAMOL] Allergy Unknown Verified 03/28/24 10:28 oxycodone [From PERCOCET] Allergy Unknown HIVES Verified 03/28/24 10:28 adhesive tape AdvReac Intermediate Tears skin Verified 03/28/24 10:28 and reactive rashes amoxicillin [AMOXICILLIN] AdvReac Intermediate GI upset Verified 03/28/24 10:28 doxycycline AdvReac Intermediate GI upset Verified 03/28/24 10:28 Review of Systems Review of Systems ROS: Yes All systems reviewed with the patient and are negative except as otherwise documented Exam Vital Signs (past 8 hours): - 03/28/24 10:31 Temperature 96.9 F L Pulse Rate 86 Respiratory Rate 12 Blood Pressure 121/74 Pulse Oximetry 98 Oxygen Delivery Method Room Air Oxygen Delivery Method Room Air Narrative Exam Narrative: Gen: NAD, sitting comfortably in bed, appears well HEENT: Sclera are anicteric, head is normocephalic and atraumatic, trachea is midline. CV: RRR, no JVD Resp: clear to auscultation bilaterally, equal chest wall movement bilaterally Abd: soft, nontender, normoactive bowel sounds Ext: no edema, full range of motion Neuro: Cranial nerves II-XII grossly intact, no focal deficits Skin: No erythema or ecchymosis Assessment & Plan Assessment and plan (1) Personal history of colonic polyps: Status: Acute Assessment & Plan narrative: Patient presents for colonoscopy Risks, benefits, alternatives to colonoscopy explained, including but not limited to bowel perforation or other serious complication requiring surgery at less than 1 in 5000 colonoscopies, abdominal pain, cramping or bleeding and less than 1% of colonoscopies, and the chances that we find a diagnosis that would require further intervention of about 2%. Patient agrees to proceed. Time-Based Coding :: [TOTAL MINUTES] spent with patient and on the chart (including review of chart, obtaining history, exam, reviewing outside data, placing orders, documenting exam and treatment plan, and counseling patient) on [DATE]. PROFEE Service Writer Advisor Document charge(s): No
--- NOTE | 2024-03-28 11:55 | PM.OP.COLON ---
Operative Date/Time/Diagnoses Date of procedure: 03/28/24 Time of procedure: 11:55 Pre-op diagnosis: Personal history of polyps Post-op diagnosis: same (Rectal polyps x2) Procedure & Clinicians Study performed: Colonoscopy with cold snare polypectomy x2 Same procedure as scheduled: Yes Indications: Personal history of polyps Surgeon: Vishnu Burnett Procedure Notes SCOAP/Timeout: Performed Procedure in detail: Time-out was performed. Mac was induced. Patient was placed in left lateral decubitus position. The perineum was inspected without any gross abnormality. Lubricated pediatric colonoscope was inserted and advanced to the cecum. The terminal ileum was intubated. The colonoscope was withdrawn slowly inspecting the circumference of the colon. There were 2 small rectal polyps, 1 of which appeared to be adenomatous, removed with cold snare polypectomy completely and retrieved. Very small polyps may have been missed, prep quality was adequate. Retroflexed view of the rectum showed small, non prolapsed nonbleeding internal hemorrhoids. The scope was withdrawn the patient was taken to PACU in good condition. Scope withdrawal time: 7 Sedation minutes: 19 Findings: polyp(s) Specimen(s): other (1. Rectal polyps x2) Complications: none Impression: Rectal polyps x2 Post-procedure Recommendations: Colonoscopy in 5 years Follow up: as needed Disposition: PACU
[2024-03-28 11:56] VITALS: BP 89/55; PULSE 82; RESP 15; TEMP 36.8; O2SAT 94
[2024-03-28 12:01] VITALS: BP 90/58; PULSE 82; RESP 20; TEMP 36.7; O2SAT 94
[2024-03-28 12:11] VITALS: BP 99/57; PULSE 85; RESP 18; TEMP 36.7; O2SAT 99
== END 2024-03-28 12:37 | disposition home or self-care (01) ==
PROVIDERS: PCP Family Medicine; Referring Provider Surgery; Visit Provider Surgery
PROC: 0DJD8ZZ Inspection of Lower Intestinal Tract, Via Natural or Artificial Opening Endoscopic (ICD-10-PCS; CPT 45378; principal; 2024-03-28 10:45)
DX: Z12.11 Encounter for screening for malignant neoplasm of colon (principal); Z86.0100 Personal history of colon polyps, unspecified; F17.210 Nicotine dependence, cigarettes, uncomplicated; K64.8 Other hemorrhoids; K62.1 Rectal polyp; A63.0 Anogenital (venereal) warts
CPT/HCPCS: 45385; J2704

== ENCOUNTER → 2024-10-27 12:08 | Outpatient (CLI) | payer MEDICARE, MEDICAID, SELFPAY ==
[2024-10-27 12:42] LABS: Ur Specific Gravity Normal (Normal)
[2024-10-27 12:43] LABS: UR Morphine/Opiate cutoff 300 Negative (Negative); Urine MDMA Negative (Negative); Urine Methamphetamines Negative (Negative); Urine Tetrahydrocannabinol Positive (Negative); Urine Tricyclic Antidepressant Negative (Negative)
== END ==
PROVIDERS: PCP Family Medicine; Referring Provider Student in an Organized Health Care Education/Training Program; Visit Provider Student in an Organized Health Care Education/Training Program
DX: Z51.81 Encounter for therapeutic drug level monitoring (principal)
CPT/HCPCS: 80305

== ENCOUNTER → 2024-12-07 08:17 | Outpatient (CLI) | payer MEDICARE, MEDICAID, SELFPAY ==
[2024-12-07 08:53] LABS: Add Manual Diff / Slide Review NO; Hematocrit 43.6 % (36-46); Hemoglobin 14.6 g/dL (12.0-16.0); Lymphocytes Absolute Auto 1800 /uL (1100-4500); Mean Corpuscular HGB Conc 33.4 % (30-36); Mean Corpuscular Hemoglobin 30.3 PG (26-34); Mean Corpuscular Volume 90.8 fL (80-100); Platelet Count 218 X10^3/uL (150-400)
[2024-12-07 09:30] LABS: Alanine Aminotransferase 19 IU/L (<35); Albumin 4.1 g/dL (3.5-5.0); Albumin Globulin Ratio 1.5 (1.0-2.8); Alkaline Phosphatase 87 U/L (38-126); Blood Urea Nitrogen 14 mg/dL (7-17); Calcium 9.0 mg/dL (8.4-10.2); Carbon Dioxide 28 mmol/L (22-32); Chloride 107 mmol/L (98-107); Estimated Glomerular Filt Rate > 60 mL/min (>60); Globulin 2.8 g/dL (1.7-4.1); Glucose 91 mg/dL (70-99); HEMOLYSIS < 15 (0-50); Potassium 4.7 mmol/L (3.4-5.1); Sodium 141 mmol/L (137-145); Total Protein 6.9 g/dL (6.3-8.2)
[2024-12-07 09:43] LABS: Free T4, Direct Thyroxine 1.49 ng/dL (0.78-2.19)
[2024-12-07 09:57] LABS: Thyroid Stimulating Hormone 2.17 uIU/mL (0.47-4.68)
== END ==
PROVIDERS: PCP Family Medicine; Referring Provider Family Medicine; Visit Provider Family Medicine
DX: Z00.00 Encounter for general adult medical examination without abnormal findings (principal); Z13.0 Encounter for screening for diseases of the blood and blood-forming organs and certain disorders involving the immune mechanism; Z13.21 Encounter for screening for nutritional disorder; Z13.228 Encounter for screening for other metabolic disorders; Z13.29 Encounter for screening for other suspected endocrine disorder
CPT/HCPCS: 36415; 80053; 84439; 84443; 85025

== ENCOUNTER → 2025-01-13 07:56 | Outpatient (CLI) | payer MEDICARE, MEDICAID, SELFPAY ==
--- NOTE | 2025-01-13 07:58 | DI.MG.S_ITS ---
MM screening mammo BI: 01/13/2025. BI-RADS: 0 CLINICAL: 64-year old female for bilateral screening mammogram. Tyrer-Cuzick lifetime risk of 3.1%. No personal or first-degree family history of breast cancer. PRIOR EXAMS 09/27/2023, 05/13/2021, 09/18/2019, 07/07/2018, MAMMOGRAPHY TECHNIQUE: 2D and 3D (tomosynthesis) digital mammographic views obtained, with additional images as needed for full coverage. Current study was also evaluated with a Computer Aided Detection (CAD) system. DENSITY B. There are scattered areas of fibroglandular density. MAMMOGRAPHY FINDINGS Right: No suspicious mass, asymmetry, microcalcification, or other abnormality seen. Left: Inner Central, Middle depth: Focal asymmetry needing additional imaging evaluation. IMPRESSION: Right * No evidence of malignancy. Left (Asymmetry): Inner Central, Middle depth * Incomplete - focal asymmetry needing additional imaging evaluation. RECOMMENDATIONS Left: Inner Central, Middle depth * Further evaluation with diagnostic mammography and diagnostic ultrasound. Ultrasound to be performed only if needed. OVERALL ASSESSMENT CATEGORY BI-RADS-0: Incomplete - Need Additional Imaging Evaluation. ELECTRONICALLY SIGNED: Manuel Del Valle M.D. on 01/15/2025 at 07:59:45 AM PT Interpreting Station ID: [id number]
== END ==
LOC: MAMMO 07:58
PROVIDERS: PCP Family Medicine; Referring Provider Family Medicine; Visit Provider Family Medicine
DX: Z12.31 Encounter for screening mammogram for malignant neoplasm of breast (principal); R92.8 Other abnormal and inconclusive findings on diagnostic imaging of breast
CPT/HCPCS: 77063; 77067

== ENCOUNTER 2025-02-11 13:01 | Emergency (ER) | payer MEDICARE, MEDICAID, SELFPAY ==
[2025-02-11 13:04] VITALS: BP 124/71; PULSE 82; RESP 18; TEMP 36.8; O2SAT 99; BMI 25.0
--- NOTE | 2025-02-11 13:17 | ED.DIZZY ---
HPI - Dizziness General Chief Complaint: Dizziness Stated Complaint: weak, face was swollen this morning, dehydrated Time Seen by Provider: 02/11/25 13:16 Source: patient Mode of arrival: Ambulatory History of Present Illness HPI Narrative: 64-year-old female presents with lightheadedness dizziness sore throat and feeling swollen and fingers feel ?sticky.Patient denies fever, chills, body aches, nausea, vomiting, diarrhea, constipation, sick contacts, chest pain, shortness of breath, loss of consciousness, numbness, tingling down the legs arms or weakness or any urinary symptoms. Other than what is stated 14 point review of system is negative. Related Data Home Medications ?Medication ?Instructions ?Recorded ?Confirmed clindamycin phosphate 1 % lotion topical 02/04/23 10/04/24 alprazolam 0.5 mg tablet 0.5 mg PO ONCE PM PRN anxiety 10/04/24 10/24/24 prazosin 1 mg capsule 1 mg PO BEDTIME 10/24/24 10/24/24 Previous Rx's ?Medication ?Instructions ?Recorded [medical marijuana] #1 ea 10/01/16 [medical marijuana] #1 ea 10/01/16 DISABLED PARKING PERMIT #1 ea 09/24/22 Vivelle-Dot 0.05 mg/24 hr 1 patch transdermal 2XW #24 ea 06/09/23 transdermal patch (estradiol) inhalational spacing device #1 ea 07/20/23 (Aerochamber MV spacer) cetirizine 10 mg tablet 10 mg PO DAILY #90 tabs 07/21/23 fluticasone propionate 50 1 spray intranasal BID #16 grams 07/21/23 mcg/actuation nasal spray,suspension (Flonase Allergy Relief) ipratropium bromide 42 mcg (0.06 2 spray intranasal TID #15 mL 07/21/23 %) nasal spray levothyroxine 88 mcg tablet 88 mcg PO QAM #90 tabs 09/14/23 prednisone 20 mg tablet 20 mg PO BID #10 tabs 02/11/25 Allergies Allergy/AdvReac Type Severity Reaction Status Date / Time minocycline Allergy Severe Stomach Verified 10/04/24 11:16 Upset/Guts inflammed. butalbital (From Fioricet) Allergy Unknown Verified 10/04/24 11:16 erythromycin base Allergy Unknown GI UPSET Verified 10/04/24 11:16 (ERYTHROMYCIN BASE) SEVERE methocarbamol (METHOCARBAMOL) Allergy Unknown Verified 10/04/24 11:16 oxycodone (From PERCOCET) Allergy Unknown HIVES Verified 10/04/24 11:16 adhesive tape AdvReac Intermediate Tears skin Verified 10/04/24 11:16 and reactive rashes amoxicillin (AMOXICILLIN) AdvReac Intermediate GI upset Verified 10/04/24 11:16 doxycycline AdvReac Intermediate GI upset Verified 10/04/24 11:16 Review of Systems Review of Systems ROS Unobtainable: All systems reviewed & are unremarkable except as noted in HPI and below Patient History Medical History PTSD (post-traumatic stress disorder) Abnormal CT scan, chest Sinusitis, acute Moderate mixed hyperlipidemia not requiring statin therapy GERD (gastroesophageal reflux disease) (Unknown) Anxiety (Unknown) Osteopenia (10/2015) Osteoporosis (10/2015) Viral pericarditis (06/2015) Vertigo (Unknown) Recurrent sinusitis (Unknown) Painful menstrual periods (Unknown) Ovarian cyst (Unknown) Herpes (Unknown) Abnormal Pap smear of cervix (~1982) Hypothyroidism (~2013) Hemorrhoids (Unknown) Skin cancer (~1997) Lymphoma (1995) Surgical History Status post hysterectomy Social History Smoking Status: Current every day smoker alcohol intake: current substance use type: marijuana Smoking Status: Current every day smoker tobacco type: e-cigarettes alcohol intake frequency: holidays/special occasions only Exam Narrative Exam Narrative: GENERAL: [64] year old patient appears stated age. Well-developed patient, in mild distress. HEAD: Atraumatic. Normocephalic. EYES: Pupils equal round and reactive. Extraocular motions intact. No scleral icterus. No injection or drainage. ENT: Nose without bleeding, purulent drainage. Throat without erythema, tonsillar hypertrophy or exudate. Airway patent. NECK: Trachea midline. Non tender CARDIOVASCULAR: Regular rate and rhythm without murmurs, gallops, or rubs. RESPIRATORY: Clear to auscultation. Breath sounds equal bilaterally. No wheezes, rales, or rhonchi. GASTROINTESTINAL: Abdomen soft, non-tender, nondistended. EXTREMITIES: No edema or joint tenderness. BACK: Nontender without deformity or crepitance. No flank tenderness. NEURO: AOx3. SKIN: No rash or erythema of visible areas Initial Vital Signs Initial Vital Signs: Vital Signs Temperature 98.2 F 02/11/25 13:04 Pulse Rate 82 02/11/25 13:04 Respiratory Rate 18 02/11/25 13:04 Blood Pressure 124/71 02/11/25 13:04 Pulse Oximetry 99 02/11/25 13:04 Oxygen Delivery Method Room Air 02/11/25 13:04 Course Orders Ordered: ED Orders 02/11/25 13:16 Covid-19 + FLU A/B + RSV - PCR Stat Strep Grp A by PCR Rapid Stat 02/11/25 13:30 CBC Auto Diff [Complete Blood Count AUTO DIFF] Stat CMP [Comprehensive Metabolic Panel] Stat Discontinued Medications Sodium Chloride (Normal Saline 0.9%) 1,000 mls @ 1,000 mls/hr IV BOLUS ONE Stop: 02/11/25 16:23 Last Admin: 02/11/25 15:46 Dose: 1,000 mls/hr Documented By: RADHA Sodium Chloride (Normal Saline 0.9%) 1,000 mls @ 1,000 mls/hr IV BOLUS ONE Stop: 02/11/25 16:24 Prednisone (Prednisone 20 Mg Tablet) 60 mg PO NOW ONE Stop: 02/11/25 13:16 Last Admin: 02/11/25 13:25 Dose: 60 mg Documented By: RADHA Vital Signs Vital signs: Vital Signs - 8 hr 02/11/25 13:04 Temperature 98.2 F Pulse Rate 82 Respiratory Rate 18 Blood Pressure 124/71 Pulse Oximetry 99 Oxygen Delivery Method Room Air MDM - Dizziness Lab Data 02/11/25 13:30 02/11/25 13:30 Labs: Lab Results 02/11/25 02/11/25 Range/Units 13:16 13:30 WBC 6.7 (4.5-11.0) X10^3/uL RBC 4.93 (4.0-5.2) X10^6/uL Hgb 15.0 (12.0-16.0) g/dL Hct 44.9 (36-46) % MCV 91.0 (80-100) fL MCH 30.5 (26-34) PG MCHC 33.5 (30-36) % RDW 13.9 (11.6-14.8) % Plt Count 199 (150-400) X10^3/uL Neut % (Auto) 63.7 (50-75) % Lymph % (Auto) 25.2 (25-40) % Bledsoe % (Auto) 3.9 (3-14) % Eos % (Auto) 1.8 L (2-4) % Baso % (Auto) 5.4 H (0-2) % Neut # (Auto) 4300 (5375-2049) /uL Lymph # (Auto) 1700 (3408-7722) /uL Bledsoe # (Auto) 300 (0-900) /uL Eos # (Auto) 100 (0-450) /uL Baso # (Auto) 400 H (0-100) /uL Sodium 138 (137-145) mmol/L Potassium 4.0 (3.4-5.1) mmol/L Chloride 105 (98-107) mmol/L Carbon Dioxide 25 (22-32) mmol/L BUN 13 (7-17) mg/dL Creatinine 0.53 (0.52-1.04) mg/dL Estimated GFR > 60 (>60) mL/min BUN/Creatinine Ratio 24.5 H (6-22) Glucose 82 (70-99) mg/dL Calcium 9.3 (8.4-10.2) mg/dL Total Bilirubin 0.6 (0.2-1.3) mg/dL AST 23 (14-36) IU/L ALT 19 (<35) IU/L Alkaline Phosphatase 88 (38-126) U/L Total Protein 7.6 (6.3-8.2) g/dL Albumin 4.4 (3.5-5.0) g/dL Globulin 3.2 (1.7-4.1) g/dL Albumin/Globulin Ratio 1.4 (1.0-2.8) SARS-CoV-2 (PCR) Negative (Negative) Influenza A (RT-PCR) Flu a negative (NEGATIVE) Influenza B (RT-PCR) Flu b negative (NEGATIVE) RSV (PCR) Negative (Negative) Group A Strep (PCR) Negative (Negative) MDM Narrative Medical decision making narrative: All lab work, vital signs, nurse triage note, medication list, previous ER visits, and all imaging studies reviewed. WBC 6.7 11 15 platelet 190 sodium 138 potassium 4.0 chloride 105 BUN 13 creatinine 0.53 glucose 82 LFTs normal. COVID flu RSV negative. Patient given fluids 1 L bolus and prednisone here. Differential diagnosis viral COVID flu RSV dehydration electrolyte derangement Discharge Plan Departure Patient Disposition: Home Clinical Impression: Acute viral syndrome, Acute dehydration Instructions: DI for Dehydration -- Adult Activity Restrictions/Additional Instructions: Return with new or worsening symptoms. Keep hydrated. Take medicine as directed. Follow up PCP in 1-2 weeks if no improvement in symptoms. Prescriptions: New prednisone 20 mg tablet 20 mg PO BID Qty: 10 0RF No Action (DME) Aerochamber MV Spacer See Rx Instructions .ROUTE .MEDSUPPLY Qty: 1 0RF Rx Instructions: As directed alprazolam 0.5 mg tablet 0.5 mg PO ONCE PM PRN (Reason: anxiety) prazosin 1 mg capsule 1 mg PO BEDTIME (DME) [medical marijuana] See Rx Instructions .Route .MEDSUPPLY Qty: 1 0RF Rx Instructions: As directed (DME) [medical marijuana] See Rx Instructions .Route .MEDSUPPLY Qty: 1 0RF Rx Instructions: As directed estradiol [Vivelle-Dot] 0.05 mg/24 hr patch semiweekly 1 patch Transdermal 2XW Qty: 24 3RF cetirizine 10 mg tablet 10 mg PO DAILY Qty: 90 3RF fluticasone propionate [Flonase Allergy Relief] 50 mcg/actuation spray,suspension 1 spray intranasal BID Qty: 16 3RF Rx Instructions: administer into each nostril ipratropium bromide 42 mcg (0.06 %) spray,non-aerosol 2 spray intranasal TID Qty: 15 11RF Rx Instructions: administer into each nostril levothyroxine 88 mcg tablet 88 mcg PO QAM Qty: 90 1RF Rx Instructions: Due for lab work clindamycin phosphate 1 % lotion topical (DME) DISABLED PARKING PERMIT See Rx Instructions .ROUTE .MEDSUPPLY Qty: 1 0RF Rx Instructions: I FIND THIS PATIENT TO BE MEDICALLY DISABLED AND QUALIFIED FOR DISABLE PARKING INDICATED, AND SIGNED ON THE ACCOMPANYING [employer] APPLICATION FOR INDIVIDUALS Referrals: Mat Evangelista MD [Primary Care Provider, Family Practice] Stand Alone Forms: Patient Portal/API
[2025-02-11 13:56] LABS: Alanine Aminotransferase 19 IU/L (<35); Albumin 4.4 g/dL (3.5-5.0); Albumin Globulin Ratio 1.4 (1.0-2.8); Alkaline Phosphatase 88 U/L (38-126); Blood Urea Nitrogen 13 mg/dL (7-17); Calcium 9.3 mg/dL (8.4-10.2); Carbon Dioxide 25 mmol/L (22-32); Chloride 105 mmol/L (98-107); Estimated Glomerular Filt Rate > 60 mL/min (>60); Globulin 3.2 g/dL (1.7-4.1); Glucose 82 mg/dL (70-99); HEMOLYSIS 15 (0-50); Potassium 4.0 mmol/L (3.4-5.1); Sodium 138 mmol/L (137-145); Total Protein 7.6 g/dL (6.3-8.2)
[2025-02-11 14:02] LABS: Add Manual Diff / Slide Review NO; Hematocrit 44.9 % (36-46); Hemoglobin 15.0 g/dL (12.0-16.0); Lymphocytes Absolute Auto 1700 /uL (1100-4500); Mean Corpuscular HGB Conc 33.5 % (30-36); Mean Corpuscular Hemoglobin 30.5 PG (26-34); Mean Corpuscular Volume 91.0 fL (80-100); Platelet Count 199 X10^3/uL (150-400)
[2025-02-11 14:18] LABS: Influenza A - CEPHEID Flu A NEGATIVE (NEGATIVE); Influenza B - CEPHEID Flu B NEGATIVE (NEGATIVE)
[2025-02-11 14:21] LABS: COVID-19 CEPHEID 4-PLEX PCR Negative (Negative)
[2025-02-11 14:47] LABS: Strep Grp A by PCR Rapid Negative (Negative)
[2025-02-11] MEDS: SODIUM CHLORIDE 0.9% 1,000 ML 1000 ML IV (15:46)
[2025-02-11 17:31] VITALS: BP 125/85; PULSE 84; RESP 16; O2SAT 97
== END 2025-02-11 17:31 | disposition home or self-care (01) ==
PROVIDERS: Emergency Provider Family Medicine; PCP Family Medicine
DX: E86.0 Dehydration (principal); B34.9 Viral infection, unspecified; R53.1 Weakness
CPT/HCPCS: 36415; 80053; 85025; 87637; 87651; 96360; 99284; J7030

== ENCOUNTER → 2025-02-16 09:27 | Outpatient (CLI) | payer MEDICARE, MEDICAID, SELFPAY ==
--- NOTE | 2025-02-16 10:00 | DI.MG.S_ITS ---
MM diagnostic mammo unilat LT, US breast LT limited: 02/16/2025 BI-RADS: 2 CLINICAL: 64-year old female for left diagnostic mammogram and left diagnostic breast ultrasound that is a recall from screening on 01/13/2025. Tyrer-Cuzick lifetime risk of 3.1%. No personal or first-degree family history of breast cancer. PRIOR EXAMS 01/13/2025, 05/14/2023, 05/13/2021, 05/14/2019, 05/13/2018, 05/13/2017, 06/25/2017. MAMMOGRAPHY TECHNIQUE: 2D and 3D (tomosynthesis) digital mammographic views obtained, with additional images as needed for full coverage. Current study was also evaluated with a Computer Aided Detection (CAD) system. ULTRASOUND TECHNIQUE: TARGETED Left Breast Ultrasound: Real-time ultrasound exam was performed focused to area of clinical and/or imaging concern. Real-time le scale and color doppler imaging of the area of clinical interest was performed with image documentation. DENSITY Left: B. There are scattered areas of fibroglandular density. MAMMOGRAPHY FINDINGS Left (finding-1): Inner Central, Middle depth, measuring 0.5cm: Correlating with findings on screening mammogram there is a circumscribed, oval, equal-density mass present. ULTRASOUND FINDINGS Left (finding-1): Inner at 9:00, 3 cm from nipple, measuring 0.6 x 0.3 x 0.3 cm: Correlating with findings on mammogram, there are clustered macrocysts. Doppler shows no vascularity. IMPRESSION: Left * No evidence of malignancy with benign findings. RECOMMENDATIONS Bilateral * Annual screening mammography. COMMENTS: Findings and recommendations were conveyed to the patient during today's evaluation. OVERALL ASSESSMENT CATEGORY BI-RADS-2: Benign. The [employer] recommends annual screening mammography beginning at age 40 for women with average risk of breast cancer. ELECTRONICALLY SIGNED: Diane Antunez M.D. on 02/16/2025 at 10:43:58 AM PT Interpreting Station ID: [id number]
== END ==
LOC: MAMMO 09:29
PROVIDERS: PCP Family Medicine; Referring Provider Family Medicine; Visit Provider Family Medicine
DX: R92.8 Other abnormal and inconclusive findings on diagnostic imaging of breast (principal); R92.322 Mammographic fibroglandular density, left breast
CPT/HCPCS: 76642; 77065; G0279